=== PATIENT | female | born 1970 | race Two or more races ===

== ENCOUNTER 2022-04-07 03:55 | Inpatient (IN) | payer BC, MEDICAID ==
[~2022-04-07] VITALS: Ht 170.2 cm; Wt 90.7 kg
[2022-04-07] MEDS ORDERED: DexAMETHasone SOD PHOS 4 MG/1ML SDV INJ IV ONE (04:45)
[2022-04-07] MEDS ORDERED: HYDROmorphone HCL 2 MG/ML VL/or syr IV ONE (04:45)
[2022-04-07] MEDS ORDERED: ONDANSETRON HCL 4 MG/2 ML VIAL IV ONE ×2 (05:00→10:45)
[2022-04-07 07:43] LABS: Basophils # (auto) 0 10 ^3/uL (0-0.2); Basophils % (auto) 0.3 % (0.0-2.0); Eosinophils # (auto) 0 10 ^3/uL (0-0.8); Eosinophils % (auto) 0.1 % (0.0-7.0); Hematocrit 41.7 % (36.0-46.0); Hemoglobin 14.1 g/dL (12.2-16.2); Lymphocytes # (auto) 0.8 10 ^3/uL (0.4-5.4); Lymphocytes % (auto) 24.7 % (10.0-50.0); Mean Corpuscular Hemoglobin 29.6 pg (28.0-32.0); Mean Corpuscular Hgb Conc. 33.9 g/dL (32.0-36.0); Mean Corpuscular Volume 87.4 fL (80.0-100.0); Monocytes # (auto) 0.3 10 ^3/uL (0-1.3); Monocytes % (auto) 7.6 % (0.0-12.0); Neutrophils # (auto) 2.2 10 ^3/uL (1.6-8.6); Neutrophils % (auto) 67.3 % (37.0-80.0); Nucleated Red Blood Cells % 0.1 %; Red Blood Cells 4.77 10^6/uL (4.0-5.20); Red Cell Distribution Width 13.2 % (11.8-14.3); White Blood Cell 3.3 10^3/uL (4.4-10.8)
[2022-04-07 08:01] LABS: BUN/Creatinine Ratio 16.4; Calcium 8.9 mg/dL (8.5-10.1); Potassium 3.3 mmol/L (3.5-5.1)
[2022-04-07 08:04] LABS: Bilirubin, Total 0.3 mg/dL (0.2-1.0); Total Protein 7.6 g/dL (6.4-8.2)
[2022-04-07] MEDS ORDERED: SODIUM CHLORIDE 0.9% 1,000 ML IV ONE (10:45)
[2022-04-07] MEDS ORDERED: MORPHINE SULFATE 4 MG/ML SYR/VIAL IV ONE (10:45)
[2022-04-07] MEDS ORDERED: KETOROLAC TROMETH 30 MG/ML 1ML VIAL IV ONE (11:30)
[2022-04-07] MEDS ORDERED: POTASSIUM CHL 20 Meq TABLET PO ONE (11:45)
[2022-04-07] MEDS ORDERED: ACETAMINOPHEN 325 MG TAB PO PRN (12:30)
[2022-04-07] MEDS ORDERED: LACTATED RINGER'S 1,000 ML IV ONE (12:30)
[2022-04-07] MEDS ORDERED: DOCUSATE SOD 100 MG CAP PO PRN (12:30)
[2022-04-07] MEDS ORDERED: TAMSULOSIN HYDROCHLORIDE 0.4 MG CAP PO SCH (12:30)
[2022-04-07] MEDS ORDERED: HYDROcodone-ACET 5/325MG TAB PO PRN (12:30)
[2022-04-07] MEDS ORDERED: HYDROmorphone HCL 2 MG/ML VL/or syr IV PRN ×2 (12:45→13:45)
[2022-04-07] MEDS: HEPARIN SODIUM (PORCINE) 5000 UNITS/ML 1ML VIAL SC SCH ×2 (13:59→20:08)
[2022-04-07] MEDS ORDERED: SODIUM CHLOR 0.9% PF (SALINE LOCK) 10ML VIAL/SYR IV SCH (14:00)
[2022-04-07] MEDS: ONDANSETRON HCL 4 MG/2 ML VIAL IV PRN ×2 (15:41→20:07)
[2022-04-07] MEDS: MORPHINE SULFATE INJ 2 MG/ml SYRG IV PRN ×3 (15:41→21:55)
[2022-04-07] MEDS ORDERED: CARI-277 PO (21:11)
[2022-04-07] MEDS ORDERED: ATEN-60 PO (21:11)
[2022-04-07] MEDS ORDERED: PERCOT PO (21:12)
[2022-04-07 21:15] VITALS: BP 184/93
[2022-04-07] MEDS ORDERED: CARISOPRODOL 350 MG TAB PO PRN (21:30)
[2022-04-07] MEDS ORDERED: ATENOLOL 25 MG TAB PO SCH (21:45)
[2022-04-07] MEDS ORDERED: OXYCODONE W/ ACETAMINOPHEN 5/325MG TABLET PO SCH (22:00)
[2022-04-08] MEDS ORDERED: ATENOLOL 25 MG TAB PO SCH (10:00)
== END 2022-04-07 22:16 | disposition left against medical advice (07) | DRG 551 ==
LOC: ER 03:55 → EDBD 03:55 → OVERFLOW 12:29
PROVIDERS: ADMIT Internal Medicine; ATTEND Internal Medicine
DX: M54.16 Radiculopathy, lumbar region (principal); U07.1 COVID-19; N20.0 Calculus of kidney; E87.6 Hypokalemia; I10 Essential (primary) hypertension; G89.29 Other chronic pain; Z53.29 Procedure and treatment not carried out because of patient's decision for other reasons
CPT/HCPCS: 36415; 72131; 74176; 80053; 85025; 87426; 93005; 96361; 96374; 96375; 96376; G0378; J1100; J1885; J2405

== ENCOUNTER 2023-10-08 10:12 | Inpatient (IN) | payer BC, MEDICAID ==
[~2023-10-08] VITALS: Ht 167.6 cm; Wt 115.0 kg
[~2023-10-08 10:12] MED LIST: ADAL40IN SC; HYDR-4798 PO; METH2.5T PO; PREG150C PO
[2023-10-08 10:30] VITALS: PULSE 81; RESP 14; O2SAT 96
[2023-10-08 11:06] LABS: Basophils # (auto) 0 10 ^3/uL (0-0.2); Basophils % (auto) 0.2 % (0.0-2.0); Eosinophils # (auto) 0 10 ^3/uL (0-0.8); Eosinophils % (auto) 0.4 % (0.0-7.0); Hematocrit 33.7 % (36.0-46.0); Hemoglobin 10.8 g/dL (12.2-16.2); Lymphocytes # (auto) 0.7 10 ^3/uL (0.4-5.4); Mean Corpuscular Hemoglobin 28.5 pg (28.0-32.0); Mean Corpuscular Hgb Conc. 32.1 g/dL (32.0-36.0); Mean Corpuscular Volume 88.6 fL (80.0-100.0); Monocytes # (auto) 0.3 10 ^3/uL (0-1.3); Monocytes % (auto) 2.5 % (0.0-12.0); Neutrophils # (auto) 10.1 10 ^3/uL (1.6-8.6); Neutrophils % (auto) 90.9 % (37.0-80.0); Red Cell Distribution Width 16.3 % (11.8-14.3); White Blood Cell 11.1 10^3/uL (4.4-10.8)
[2023-10-08] MEDS: KETOROLAC TROMETH 30 MG/ML 1ML VIAL IV ONE (11:12)
[2023-10-08] MEDS: SODIUM CHLORIDE 0.9% 1,000 ML IV ONE (11:12)
[2023-10-08] MEDS: ONDANSETRON HCL 4 MG/2 ML VIAL IV ONE (11:13)
[2023-10-08 11:24] LABS: Urine Bacteria None Seen /hpf (None Seen)
[2023-10-08] MEDS: VANCOMYCIN 1GM/200ML 200 ML IV ONE (11:25)
[2023-10-08 11:30] LABS: Alanine Aminotransferase 17 U/L (7-40); Albumin 4.2 g/dL (3.2-4.8); Alkaline Phosphatase 97 U/L (46-116); Anion Gap 12 (5-15); Aspartate Aminotransferase 18 U/L (13-40); BUN/Creatinine Ratio 9.2 (10.0-20.0); Blood Urea Nitrogen 6 mg/dL (9-23); Calcium 9.8 mg/dL (8.5-10.1); Carbon Dioxide 21 mmol/L (20-30); Chloride 109 mmol/L (98-107); Glucose 139 mg/dL (74-106); Potassium 2.8 mmol/L (3.5-5.1); Sodium 142 mmol/L (136-145)
[2023-10-08 11:31] LABS: Bilirubin, Total 0.3 mg/dL (0.2-1.0); Total Protein 7.5 g/dL (5.7-8.2)
[2023-10-08 11:48] LABS: INR 1.1 (0.9-1.15); Partial Thromboplastin Time 28.7 SEC (24.5-34.5); Prothrombin Time 11.6 sec (9.3-11.8)
[2023-10-08] MEDS ORDERED: POTASSIUM CHL 20 Meq TABLET PO ONE (12:00)
[2023-10-08] MEDS: MORPHINE SULFATE 4 MG/ML SYR/VIAL IV ONE (12:03)
[2023-10-08] MEDS: POTASSIUM EFFERVESENT TAB 25 MEQ PO ONE (12:03)
[2023-10-08 12:11] LABS: Urine Blood Negative /uL (Negative); Urine Clarity Clear (Clear); Urine Color Light-Yellow (Yellow); Urine Mucus FEW (None Seen); Urine Protein, UAD 1+ (Negative); Urine Urobilinogen Normal (Negative); Urine WBC 1 /hpf (0 - 5); Urine pH 6.5 (5.0-9.0)
[2023-10-08] MEDS: MAGNESIUM SULFATE 1GM/100ML 100 ML IV ONE (12:27)
[2023-10-08] MEDS: PIPERACILLIN-TAZO 4.5GM 100 ML IV ONE (13:08)
[2023-10-08] MEDS: HYDROmorphone HCL 2 MG/ML VL/or syr IV ONE ×3 (13:42→21:18)
[2023-10-08] MEDS: METOCLOPRAMIDE HCL 5MG/ml INJ 2ml VIAL IV ONE (13:43)
[2023-10-08] MEDS ORDERED: VANCOMYCIN PER PHARMACY 0 MG IV SCH (16:45)
[2023-10-08] MEDS ORDERED: ONDANSETRON HCL 4 MG/2 ML VIAL IV PRN (16:45)
[2023-10-08] MEDS ORDERED: ACETAMINOPHEN 325 MG TAB PO PRN (16:45)
[2023-10-08] MEDS ORDERED: clonazePAM 0.5 MG TAB PO SCH ×2 (16:45→22:00)
[2023-10-08] MEDS ORDERED: HYDROcodone-ACET 5/325MG TAB PO PRN (16:45)
[2023-10-08] MEDS ORDERED: MORPHINE SULFATE INJ 2 MG/ml SYRG IV PRN (16:45)
[2023-10-08] MEDS: clonazePAM 0.5 MG TAB PO ONE (17:02)
[2023-10-08] MEDS: VANCOMYCIN 1GM/200ML 200 ML IV SCH (17:14)
[2023-10-08] MEDS: SODIUM CHLORIDE 0.9% 1,000 ML IV SCH (17:15)
[2023-10-08] MEDS: PIPERACILLIN-TAZOB 3.375GM 100 ML IV SCH (18:25)
[2023-10-08 20:00] VITALS: PULSE 77; RESP 14; TEMP 98.3; O2SAT 98
[2023-10-08] MEDS ORDERED: OXYCODONE W/ ACETAMINOPHEN 5/325MG TABLET PO PRN (20:55)
[2023-10-08 21:53] VITALS: BP 124/66; PULSE 87; RESP 22; O2SAT 98
== END 2023-10-09 03:19 | disposition left against medical advice (07) | DRG 383 ==
LOC: ER 10:12 → EDBD 10:12 → OVERFLOW 16:35 → WEST WING 22:25
PROVIDERS: ADMIT Internal Medicine; ATTEND Internal Medicine
DX: L02.212 Cutaneous abscess of back [any part, except buttock and flank] (principal); F41.9 Anxiety disorder, unspecified; G89.29 Other chronic pain; I10 Essential (primary) hypertension; Z53.29 Procedure and treatment not carried out because of patient's decision for other reasons; N20.0 Calculus of kidney; M45.9 Ankylosing spondylitis of unspecified sites in spine; G47.30 Sleep apnea, unspecified; Z79.899 Other long term (current) drug therapy; Y84.8 Other medical procedures as the cause of abnormal reaction of the patient, or of later complication, without mention of misadventure at the time of the procedure; Y92.89 Other specified places as the place of occurrence of the external cause
CPT/HCPCS: 36415; 71045; 74176; 80053; 81001; 83605; 85025; 85610; 85730; 87040; G0378; J1885; J2405; J2543

== ENCOUNTER 2024-02-07 12:22 | Inpatient (IN) | payer MEDICAID ==
[~2024-02-07] VITALS: Ht 167.6 cm; Wt 90.2 kg
[2024-02-07] VITALS (33 sets, daily range): BP systolic 94–145; BP diastolic 43–77; PULSE 61–82; RESP 18–24; TEMP 97.9–99.1; O2SAT 96–100
[2024-02-07] MEDS: MIDAZOLAM DRIP 50 mg/50mL 50 ML IV ONE (12:44)
--- NOTE | 2024-02-07 12:44 | ED.PDOC ---
Altered Mental Status HPI Comments 53y F who presents to the ED for chief complaint of ALOC. Per EMS, pt was found by family in bedroom unresponsive laid out in bed. Pt family started chest compressions and family member had EPI pen and administered to try and help but pt still unresponsive and family called EMS. EMS arrived with family stating they had been doing CPR for approx 5 minutes. EMS arrived on scene and noted pt had agonal respirations with 02 sat of 36- 37% but had noted strong pulses and and tried given 2 mg Narcan with no change. EMS starting bagging the pt and 02 sat janak to 96-97% and pt was brought to the ED. Pt in the ED, not alert or oriented with EMS bagging upon arrival to ED bed. Pt family states pt went to gym earlier this AM and after coming back home, pt showered and was found unresponsive by family. Pt family states pt was last well seen at approx 0800 and family states pt was found unresponsive at approx 1145 AM. EMS states pt is DEAF and has otherwise noted history of HTN and chronic back pain, and insomnia and it unknown if pt took any medications earlier this AM. Pt unable to answer any questions at this time. Chief Complaint: ALOC Time Seen by MD: 12:39 Primary Care Provider: FRANSISCO Almazan Notes: Nurses Notes, Medications, Allergies Allergies: Coded Allergies: NO KNOWN ALLERGIES (Unverified , 04/07/22) Home Meds Reported Medications Methotrexate (Methotrexate) Unknown Strength Tab, PO, TAB 06/11/23 Pregabalin (Lyrica) 150 Mg Cap, 300 MG PO TID, CAP 06/11/23 Adalimumab (Humira) 40 Mg/0.4 Ml Inj, 40 MG SC [id number], INJ 06/11/23 Hydrocodone-Acetaminophen (Hydrocodone Bitartrate/AC 10-325 mg) 1 Tab Tab, 1 TAB PO TID, TAB 06/11/23 Information Source: Emergency Med Personnel Mode of Arrival: EMS Brought in by: EMS Severity: Unresponsive Timing: Minutes, Hours Duration: Minutes Prehospital treatment: Other (narcan 2 mg) Quality: None Recent: None History of: None Associated Signs and Symptoms: None Past Medical History PAST MEDICAL HISTORY: Arthritis, HTN, Kidney Stones, UTI'S Past Medical History (Other): chronic back pain, insomnia Surgical History: Unknown 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: 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 Family History Family History: Unknown Social History Smoker: Unknown Alcohol: Unknown Drugs: Unknown Lives In: Home Constitutional: denies: chills, diaphoresis, fatigue, fever, malaise, sweats, weakness, others EENTM: denies: blurred vision, double vision, ear bleeding, ear discharge, ear drainage, ear pain, ear ringing, eye pain, eye redness, hearing loss, mouth pain, mouth swelling, nasal discharge, nose bleeding, nose congestion, nose pain, photophobia, tearing, throat pain, throat swelling, voice changes, others Respiratory: denies: cough, hemoptysis, orthopnea, SOB at rest, shortness of breath, SOB with excertion, stridor, wheezing, others Cardiovascular: denies: chest pain, dizzy spells, diaphoresis, Dyspnea on exertion, edema, irregular heart beat, left arm pain, lightheadedness, palpitations, PND, syncope, others Gastrointestinal: denies: abdomen distended, abdominal pain, blood streaked bowels, constipated, diarrhea, dysphagia, difficulty swallowing, hematemesis, melena, nausea, poor appetite, poor fluid intake, rectal bleeding, rectal pain, vomiting, others Genitourinary: denies: abnormal vagina bleeding, burning, dyspareunia, dysuria, flank pain, frequency, hematuria, incontinence, pain, , vagina dis charge, urgency, others Neurological: denies: dizziness, fainting, headache, left sided numbness, left sided weakness, numbness, paresthesia, pre-existing deficit, right sided numbness, right sided weakness, seizure, speech problems, tingling, tremors, weakness, others Musculoskeletal: denies: back pain, gout, joint pain, joint swelling, muscle pain, muscle stiffness, neck pain, others Integumetry: denies: bruises, change in color, change in hair/nails, dryness, laceration, lesions, lumps, rash, wounds, others Allergic/Immunocompromised: denies: Difficulty Healing, Frequent Infections, Hives, Itching, others Hematologic/Lymphatic: denies: anemia, blood clots, easy bleeding, easy bruising, swollen glands, others Endocrine: denies: excessive hunger, excessive sweating, excessive thirst, excessive urination, flushing, intolerance to cold, intolerance to heat, unexplained weight gain, unexplained weight loss, others Psychiatric: denies: anxiety, bipolar disorder, depression, hopeless, panic disorder, schizophrenia, sleepless, suicidal, others Unable to Obtain due to: Altered Mental Status All Other Systems: Reviewed and Negative Physical Exam General Appearance: Moderate Distress HEENT: Normal ENT Inspection, Pharynx Normal, TMs Normal Neck: Full Range of Motion, Non-Tender, Normal, Normal Inspection Respiratory: Chest Non-Tender, Lungs Clear, No Accessory Muscle Use, No Respiratory Distress, Normal Breath Sounds Cardiovascular: No Edema, No JVD, No Murmur, No Gallop, Normal Peripheral Pulses, Regular Rate/Rhythm Breast Exam: Deferred Gastrointestinal: No Organomegaly, Non Tender, No Pulsatile Mass, Normal Bowel Sounds, Soft Genitalia: Deferred Pelvic: Deferred Rectal: Deferred Extremities: No calf tenderness, Normal capillary refill, Normal inspection, Normal range of motion, Non-tender, No pedal edema Musculoskeletal : Apperance: Normal Neurologic: Alert, leadership recruiter II-XII nml as Tested, No Motor Deficits, Normal Affect, Normal Mood, No Sensory Deficits Cerebellar Function: Normal Reflexes: Normal Skin: Dry, Normal Color, Warm Lymphatic: No Adenopathy Was a procedure done? 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 Indication: Inability to obtain IV Room prepared for procedure: Yes Coroner'S Juror performed hand hygien: Yes Maximal sterile barrier precau: Mask/Eye shield, Sterile gown, Sterlie gloves, Large sterlie drape Skin preparation completely dr: Yes Insertion site: Right, Femoral Central line catheter type: [id number] dialysis Post Assessment: Chest X-Ray Intubation Indication: Altered Mental Status Prep: No Preoxygenation Pretreated with: Other (etomidate 20 mg) Medicated with: Succinylcholine (100 mg) Intubation Approach: Orotracheal Intubation size: cm (8.0 , 24 cm) Informed consent obtained: No Risks/benefits/alt described: No Differential Diagnosis (ALOC) Differential Diagnosis: Hypoglycemia, Encephalopathy, Sepsis, Closed Head Injury, CVA, Drug Overdose, ETOH Intoxication, Heart Failure, Renal Failure X-Ray, Labs, Meds, VS Vital Signs Date Time Temp Pulse Resp B/P (MAP) Pulse Ox O2 Delivery O2 Flow Rate FiO2 02/07/24 15:00 95/53 02/07/24 15:00 95/53 02/07/24 14:19 82 18 94/43 (60) 100 60 02/07/24 13:54 98.0 70 24 100/57 98 60 98.0 02/07/24 13:44 100/57 02/07/24 13:27 70 18 98 Mechanical Ventilator+ 100 100 02/07/24 12:45 100/59 02/07/24 12:30 84 100 60 02/07/24 12:23 101 33 112/44 (66) 95 Lab Test 02/07/24 13:40 02/07/24 12:48 02/07/24 12:00 Range/Units Blood Gas Specimen Type Arterial Blood Gas Sample Site Right radial Blood Gas Patient Temperature 37.0 Arterial Blood Date Drawn [id number] Arterial Blood pH 7.123 *L 7.350-7.450 Arterial Blood Partial Pressure CO2 40.2 32.0-45.0 mmHg Arterial Blood Partial Pressure O2 76.6 L 83.0-108.0 mmHg Arterial Blood HCO3 12.9 L 21.0-28.0 mmol/L Arterial Blood Oxygen Saturation 92.8 L 94.0-98.0 % Arterial Blood Base Excess -15.6 L -2.0-3.0 mmol/L Arterial Blood Oxyhemoglobin 91.7 L 94.0-98.0 % Arterial Blood Carboxyhemoglobin 0.7 0.5-1.5 % Arterial Blood Methemoglobin 0.5 0.0-1.5 % Josué Test Modified Blood Gas Total Hemoglobin 11.10 L 12.0-16.0 g/dL Blood Gas Set Respiration Rate 18.0 Blood Gas Modality Vent - ac FiO2 % 60.0 Blood Gas Tidal Volume 450.0 Blood Gas PEEP or CPAP 5.0 Blood Gas Critical Value Read Back Yes Blood Gas Notified Whom Regina garza md Blood Gas Notified Time [id number] Blood Gas Notified By Drill Runner Helper [email or web address] White Blood Count 11.2 H 4.4-10.8 10^3/uL Red Blood Count 4.11 4.0-5.20 10^6/uL Hemoglobin 10.5 L 12.2-16.2 g/dL Hematocrit 36.5 36.0-46.0 % Mean Corpuscular Volume 88.8 80.0-100.0 fL Mean Corpuscular Hemoglobin 25.5 L 28.0-32.0 pg Mean Corpuscular Hemoglobin Concent 28.7 L 32.0-36.0 g/dL Red Cell Distribution Width 19.5 H 11.8-14.3 % Platelet Count 288 140-450 10^3/uL Mean Platelet Volume 8.7 6.9-10.8 fL Neutrophils (%) (Auto) 76.7 37.0-80.0 % Lymphocytes (%) (Auto) 17.7 10.0-50.0 % Monocytes (%) (Auto) 4.9 0.0-12.0 % Eosinophils (%) (Auto) 0.3 0.0-7.0 % Basophils (%) (Auto) 0.4 0.0-2.0 % Neutrophils # (Auto) 8.6 1.6-8.6 10 ^3/uL Lymphocytes # (Auto) 2.0 0.4-5.4 10 ^3/uL Monocytes # (Auto) 0.5 0-1.3 10 ^3/uL Eosinophils # (Auto) 0 0-0.8 10 ^3/uL Basophils # (Auto) 0 0-0.2 10 ^3/uL Nucleated Red Blood Cells 0.2 % Sodium Level 143 136-145 mmol/L Potassium Level 4.2 3.5-5.1 mmol/L Chloride Level 112 H 98-107 mmol/L Carbon Dioxide Level 17 L 20-31 mmol/L Anion Gap 14 5-15 Blood Urea Nitrogen 23 9-23 mg/dL Creatinine 1.43 H 0.550-1.02 mg/dL Glomerular Filtration Rate Calc 43 >90 mL/min BUN/Creatinine Ratio 16.1 10.0-20.0 Serum Glucose 120 H 74-106 mg/dL Calcium Level 9.0 8.7-10.4 mg/dL Troponin I High Sensitivity 114 *H </=34 ng/L Plasma/Serum Blood Alcohol < 3.0 <10 mg/dL Urine Color Light-orange Yellow Urine Clarity Ex.turbid Clear Urine pH 5.5 5.0-9.0 Urine Specific [place] 1.027 1.001-1.035 Urine Protein 3+ H Negative Urine Ketones Negative Negative Urine Blood 3+ H Negative /uL Urine Nitrite Negative Negative Urine Bilirubin Negative Negative Urine Urobilinogen Normal Negative mg/dL Urine Leukocyte Esterase Negative Negative /uL Urine RBC 7 0 - 4 /hpf Urine WBC 31 0 - 5 /hpf Urine Squamous Epithelial Cells None seen <5 /hpf Urine Bacteria Few H None Seen /hpf Urine Hyaline Casts Few 0 - 2 /lpf Urine Mucus Few None Seen Urine Glucose Normal Normal mg/dL Urine Opiates Screen Pos NEGATIVE Urine Fentanyl Screen Neg NEGATIVE Urine Barbiturates Screen Neg NEGATIVE Urine Phencyclidine Screen Neg NEGATIVE Urine Amphetamines Screen Neg NEGATIVE Urine Benzodiazepines Screen Pos NEGATIVE Urine Cocaine Screen Neg NEGATIVE Urine Cannabinoids Screen Pos NEGATIVE Current Medications Medications (Trade) Dose Ordered Sig/Shoaib Route Start Time Stop Time Status Last Admin Etomidate 20 mg ONCE ONCE IV 02/07/24 12:45 02/07/24 12:46 DC 02/07/24 12:45 Succinylcholine Chloride (Quelicin) 100 mg ONCE ONCE IV 02/07/24 12:45 02/07/24 12:46 DC 02/07/24 12:45 Midazolam HCl 50 ml @ 1 mls/hr Q24H IV 02/07/24 12:45 02/07/24 12:45 Sodium Bicarbonate 50 ml ONCE ONCE IV 02/07/24 14:00 02/07/24 14:01 DC 02/07/24 14:09 Sodium Bicarbonate 50 ml/ Sodium Chloride 1,050 ml @ 50 mls/hr ONCE ONCE IV 02/07/24 14:00 02/08/24 10:59 02/07/24 14:00 Norepinephrine Bitartrate 250 ml @ 3.75 mls/hr Q24H IV 02/07/24 15:00 02/07/24 15:00 The chest x-ray shows: IMPRESSION: 1. Endotracheal tube 5.2 cm above the . 2. Enteric tube below the left diaphragm in the stomach. A Alaniz catheter was placed. Currently the patient is being sedated with a Versed. The initial ABG came back with a pH of 7.12 The patient's sodium bicarbonate is decreased at 12.9 At this time, the patient is being given one amp of sodium bicarbonate The patient was started on a half-normal saline drip with an amp of sodium bicarbonate The patient's urine tox is positive for benzodiazepines, marijuana and opiates The urine test is positive for WBCs consistent with a UTI The patient is being given Rocephin 1 g IV piggyback The 1st troponin level came back elevated at 114 The CBC does show some anemia as well The patient is being admitted to the hospitalist The patient's was at bedside briefly and we did explain the patient's condition The patient became somewhat hypotensive and was stating that she wants the endotracheal tube pulled out. We did go ahead and turned down the sedation but the patient is not able to tolerate her secretions and we feel that the patient is not ready to be extubated. We did start the patient on norepinephrine to address the patient's blood pressure The patient is now also being started on propofol to address the sedation At this time, the patient is being The CT scan of the head will be followed by the hospitalist Images Reviewed?: Images reviewed and evaluated by me Time of 1ST Reevaluation: 13:10 Reevaluation 1ST: Unchanged Patient Education/Counseling: Pt Unresponsive Family Education/Counseling: Diagnosis, Treatment, Prognosis Departure 1 Departure Time of Disposition: 14:20 Impression: Primary Impression: Respiratory acidosis Additional Impressions: Acute respiratory failure Qualified Codes: J96.01 - Acute respiratory failure with hypoxia Toxic encephalopathy Qualified Codes: G92.9 - Unspecified toxic encephalopathy Disposition: ADMITTED INPATIENT Admit to: ICU Condition: Fair Critical Care Note Critical Care Time?: Yes Stability Stability form required: Yes Unstable for transfer: ICU, CCU, PCU, OCTAVIO (Intensive VS monitoring), May require CPR (possible rapid decline), ED Physician Assesment (Clinical assesment) Heart Score Heart Score: Heart Score Response (Comments) Value History N/A 0 EKG N/A 0 Age N/A 0 Risk Factors N/A 0 Troponin N/A 0 Total 0 I personally scribed for ZANE GARZA MD (NOY) on 02/07/24 at 12:44. Electronically submitted by Peace Beard (YI). I personally scribed for ZANE GARZA MD ([email or web address]) on 02/07/24 at 13:02. Electronically submitted by Peace Beard (YI). I personally scribed for ZANE GARZA MD (NOY) on 02/07/24 at 13:07. Electronically submitted by Peace Beard (YI). I personally scribed for ZANE GARZA MD ([email or web address]) on 02/07/24 at 14:03. Electronically submitted by Peace Beard (YI). ZANE GARZA MD Feb 07, 2024 12:44
[2024-02-07] MEDS: SUCCINYLCHOLINE CHLORIDE 20 MG/ML 10ML VIAL IV ONE (12:45)
[2024-02-07] MEDS: ETOMIDATE (2MG/ML) 20ML VIAL IV ONE (12:45)
[2024-02-07] MEDS: MIDAZOLAM DRIP 50 mg/50mL 50 ML IV SCH (12:45)
[2024-02-07 12:56] LABS: Urine Bacteria FEW /hpf (None Seen); Urine Blood 3+ /uL (Negative); Urine Clarity Ex.Turbid (Clear); Urine Color Light-Orange (Yellow); Urine Hyaline Cast FEW /lpf (0 - 2); Urine Mucus FEW (None Seen); Urine Protein, UAD 3+ (Negative); Urine Specific Gravity 1.027 (1.001-1.035); Urine Urobilinogen Normal (Negative); Urine WBC 31 /hpf (0 - 5); Urine pH 5.5 (5.0-9.0)
[2024-02-07 13:04] LABS: Anion Gap 14 (5-15); Carbon Dioxide 17 mmol/L (20-31); Chloride 112 mmol/L (98-107); Potassium 4.2 mmol/L (3.5-5.1); Sodium 143 mmol/L (136-145)
[2024-02-07 13:05] LABS: Eosinophils # (auto) 0 10 ^3/uL (0-0.8); Hemoglobin 10.5 g/dL (12.2-16.2); Monocytes # (auto) 0.5 10 ^3/uL (0-1.3); Nucleated Red Blood Cells % 0.2 %
[2024-02-07 13:07] LABS: Basophils # (auto) 0 10 ^3/uL (0-0.2); Basophils % (auto) 0.4 % (0.0-2.0); Eosinophils % (auto) 0.3 % (0.0-7.0); Hematocrit 36.5 % (36.0-46.0); Lymphocytes % (auto) 17.7 % (10.0-50.0); Mean Corpuscular Hemoglobin 25.5 pg (28.0-32.0); Mean Corpuscular Hgb Conc. 28.7 g/dL (32.0-36.0); Mean Corpuscular Volume 88.8 fL (80.0-100.0); Monocytes % (auto) 4.9 % (0.0-12.0); Neutrophils # (auto) 8.6 10 ^3/uL (1.6-8.6); Neutrophils % (auto) 76.7 % (37.0-80.0); Platelet Count (auto) 288 10^3/uL (140-450); Red Blood Cells 4.11 10^6/uL (4.0-5.20); Red Cell Distribution Width 19.5 % (11.8-14.3); White Blood Cell 11.2 10^3/uL (4.4-10.8)
[2024-02-07 13:10] LABS: BUN/Creatinine Ratio 16.1 (10.0-20.0); Blood Alcohol < 3.0 mg/dL (<10); Blood Urea Nitrogen 23 mg/dL (9-23); Glucose 120 mg/dL (74-106)
[2024-02-07 13:18] LABS: Amphetamine Screen, Urine Neg (NEGATIVE); Barbiturate Scree,Urine Neg (NEGATIVE); Benzodiazephine Screen, Urine Pos (NEGATIVE); Cannabinoid Screen, Urine Pos (NEGATIVE); Cocaine Screen, Urine Neg (NEGATIVE); Opiate Scree,Urine Pos (NEGATIVE); Phencyclidine Screen, Urine Neg (NEGATIVE)
[2024-02-07 13:46] LABS: Base Excess -15.6 mmol/L (-2.0-3.0)
[2024-02-07] MEDS: SODIUM BICARB 50mEq/50ml Vial 50 ML in SOD CHL 0.45% 1,000 ML IV ONE (14:00)
[2024-02-07] MEDS: SODIUM BICARB 8.4% 50Meq/50ml SYR Vial IV ONE (14:09)
--- NOTE | 2024-02-07 14:15 | DVH ---
CHEST RADIOGRAPH Indication:weakness Technique: Single frontal view of the chest was obtained Comparison: XY CHEST PORTABLE on DOS: 10/08/23 FINDINGS: Lines and Tubes: 0.2 the craina. Enteric tube below the left diaphragm in the stomach. Lungs: No focal consolidation. Pleura: No effusion. No pneumothorax. Cardiomediastinal contours: Unremarkable Bones: No acute osseous abnormality. IMPRESSION: 1. Endotracheal tube 5.2 cm above the . 2. Enteric tube below the left diaphragm in the stomach.
[2024-02-07] MEDS: cefTRIAXone 1GM/50ML D5W 50 ML IV ONE (14:30)
[2024-02-07] MEDS ORDERED: SODIUM CHLORIDE 0.9% 1,000 ML IV ONE (14:30)
[2024-02-07] MEDS: NALOXONE HCL 1MG/ML 2ML SYRINGE ONE (14:40)
[2024-02-07] MEDS: NOREPINEPHRINE 8 MG/250ML KIT 250 ML IV ONE (15:00)
[2024-02-07] MEDS: NOREPINEPHRINE 8 MG/250ML KIT 250 ML IV SCH (15:00)
[2024-02-07] MEDS ORDERED: PROPOFOL 10 MG/ML 20 ML IV ONE (16:15)
[2024-02-07] MEDS ORDERED: ONDANSETRON HCL 4 MG/2 ML VIAL IV PRN (16:15)
[2024-02-07] MEDS: SODIUM CHLORIDE 0.9% 1,000 ML IV SCH (16:15)
[2024-02-07] MEDS: PROPOFOL 100 ML IV SCH (16:20)
[2024-02-07] MEDS: PANTOPRAZOLE 40 MG/10 ML VIAL INJ IV ONE (16:45)
--- NOTE | 2024-02-07 16:51 | DVHHP2 ---
History of Present Illness Reason for Visit: CPR in progress History of Present Illness The patient is currently intubated. Medical history obtained for nursing staff and medical record. 53y F who presents to the ED for chief complaint of ALOC. Per EMS, pt was found by family in bedroom unresponsive laid out in bed. Pt family started chest compressions and family member had EPI pen and administered to try and help but pt still unresponsive and family called EMS. EMS arrived with family stating they had been doing CPR for approx 5 minutes. EMS arrived on scene and noted pt had agonal respirations with 02 sat of 36- 37% but had noted strong pulses and and tried given 2 mg Narcan with no change. EMS starting bagging the pt and 02 sat janak to 96-97% and pt was brought to the ED. Pt in the ED, not alert or oriented with EMS bagging upon arrival to ED bed. Pt family states pt went to gym earlier this AM and after coming back home, pt showered and was found u nresponsive by family. Pt family states pt was last well seen at approx 0800 and family states pt was found unresponsive at approx 1145 AM. EMS states pt is DEAF and has otherwise noted history of HTN and chronic back pain, and insomnia and it unknown if pt took any medications earlier this AM. Pt unable to answer any questions at this time. Past Medical History As stated in HPI Past Surgical History Unknown Family History Reviewed, non-contributory to the management of this case. Past Social History Unknown Review of Systems Review of Systems ROS See HPI Allergies: Coded Allergies: NO KNOWN ALLERGIES (Unverified , 04/07/22) Medications Current Medications Medications Dose Ordered Sig/Shoaib Route Start Time Stop Time Status Last Admin Dose Admin Midazolam HCl 50 ml @ 1 mls/hr Q24H IV 02/07/24 12:45 02/07/24 12:45 1 MLS/HR Norepinephrine Bitartrate 250 ml @ 3.75 mls/hr Q24H IV 02/07/24 15:00 02/07/24 15:00 3.75 MLS/HR Propofol 100 ml @ 3.06 mls/hr Q24H IV 02/07/24 16:15 02/07/24 16:20 3.06 MLS/HR Sodium Chloride 1,000 ml @ 100 mls/hr Q10H IV 02/07/24 16:15 UNV Ondansetron HCl 4 mg Q4HP PRN IV 02/07/24 16:15 UNV Exam Vital Signs Vital Signs Date Time Temp Pulse Resp B/P (MAP) Pulse Ox O2 Delivery O2 Flow Rate FiO2 02/07/24 16:20 106/62 02/07/24 16:15 98 40 02/07/24 16:05 66 18 02/07/24 13:54 98.0 98.0 02/07/24 13:27 Mechanical Ventilator+ General Appearance: Other (Currently intubated) Respiratory: Clear to auscultation, Normal air movement, Other (Intubated) Cardiovascular: Regular rate, Normal S1, Normal S2 Abdominal: Normal bowel sounds, Soft, No tenderness Extremities: No clubbing, No cyanosis, No edema, Normal pulses Skin: No rashes, No breakdown Neuro: Normal gait Labs/Xrays Labs Test 02/07/24 13:40 02/07/24 12:48 02/07/24 12:00 Range/Units Blood Gas Specimen Type Arterial Blood Gas Sample Site Right radial Blood Gas Patient Temperature 37.0 Arterial Blood Date Drawn [id number] Arterial Blood pH 7.123 *L 7.350-7.450 Arterial Blood Partial Pressure CO2 40.2 32.0-45.0 mmHg Arterial Blood Partial Pressure O2 76.6 L 83.0-108.0 mmHg Arterial Blood HCO3 12.9 L 21.0-28.0 mmol/L Arterial Blood Oxygen Saturation 92.8 L 94.0-98.0 % Arterial Blood Base Excess -15.6 L -2.0-3.0 mmol/L Arterial Blood Oxyhemoglobin 91.7 L 94.0-98.0 % Arterial Blood Carboxyhemoglobin 0.7 0.5-1.5 % Arterial Blood Methemoglobin 0.5 0.0-1.5 % Josué Test Modified Blood Gas Total Hemoglobin 11.10 L 12.0-16.0 g/dL Blood Gas Set Respiration Rate 18.0 Blood Gas Modality Vent - ac FiO2 % 60.0 Blood Gas Tidal Volume 450.0 Blood Gas PEEP or CPAP 5.0 Blood Gas Critical Value Read Back Yes Blood Gas Notified Whom Regina cartwright md Blood Gas Notified Time [id number] Blood Gas Notified By Subway Operator [email or web address] White Blood Count 11.2 H 4.4-10.8 10^3/uL Red Blood Count 4.11 4.0-5.20 10^6/uL Hemoglobin 10.5 L 12.2-16.2 g/dL Hematocrit 36.5 36.0-46.0 % Mean Corpuscular Volume 88.8 80.0-100.0 fL Mean Corpuscular Hemoglobin 25.5 L 28.0-32.0 pg Mean Corpuscular Hemoglobin Concent 28.7 L 32.0-36.0 g/dL Red Cell Distribution Width 19.5 H 11.8-14.3 % Platelet Count 288 140-450 10^3/uL Mean Platelet Volume 8.7 6.9-10.8 fL Neutrophils (%) (Auto) 76.7 37.0-80.0 % Lymphocytes (%) (Auto) 17.7 10.0-50.0 % Monocytes (%) (Auto) 4.9 0.0-12.0 % Eosinophils (%) (Auto) 0.3 0.0-7.0 % Basophils (%) (Auto) 0.4 0.0-2.0 % Neutrophils # (Auto) 8.6 1.6-8.6 10 ^3/uL Lymphocytes # (Auto) 2.0 0.4-5.4 10 ^3/uL Monocytes # (Auto) 0.5 0-1.3 10 ^3/uL Eosinophils # (Auto) 0 0-0.8 10 ^3/uL Basophils # (Auto) 0 0-0.2 10 ^3/uL Nucleated Red Blood Cells 0.2 % Sodium Level 143 136-145 mmol/L Potassium Level 4.2 3.5-5.1 mmol/L Chloride Level 112 H 98-107 mmol/L Carbon Dioxide Level 17 L 20-31 mmol/L Anion Gap 14 5-15 Blood Urea Nitrogen 23 9-23 mg/dL Creatinine 1.43 H 0.550-1.02 mg/dL Glomerular Filtration Rate Calc 43 >90 mL/min BUN/Creatinine Ratio 16.1 10.0-20.0 Serum Glucose 120 H 74-106 mg/dL Calcium Level 9.0 8.7-10.4 mg/dL Troponin I High Sensitivity 114 *H </=34 ng/L Plasma/Serum Blood Alcohol < 3.0 <10 mg/dL Urine Color Light-orange Yellow Urine Clarity Ex.turbid Clear Urine pH 5.5 5.0-9.0 Urine Specific [place] 1.027 1.001-1.035 Urine Protein 3+ H Negative Urine Ketones Negative Negative Urine Blood 3+ H Negative /uL Urine Nitrite Negative Negative Urine Bilirubin Negative Negative Urine Urobilinogen Normal Negative mg/dL Urine Leukocyte Esterase Negative Negative /uL Urine RBC 7 0 - 4 /hpf Urine WBC 31 0 - 5 /hpf Urine Squamous Epithelial Cells None seen <5 /hpf Urine Bacteria Few H None Seen /hpf Urine Hyaline Casts Few 0 - 2 /lpf Urine Mucus Few None Seen Urine Glucose Normal Normal mg/dL Urine Opiates Screen Pos NEGATIVE Urine Fentanyl Screen Neg NEGATIVE Urine Barbiturates Screen Neg NEGATIVE Urine Phencyclidine Screen Neg NEGATIVE Urine Amphetamines Screen Neg NEGATIVE Urine Benzodiazepines Screen Pos NEGATIVE Urine Cocaine Screen Neg NEGATIVE Urine Cannabinoids Screen Pos NEGATIVE PROCEDURE(s): CXRP - CHEST PORTABLE REASON: weakness ORDER NUMBER(s): [id number], ACCESSION NUMBER(s): [id number] CHEST RADIOGRAPH Indication:weakness Technique: Single frontal view of the chest was obtained Comparison: XY CHEST PORTABLE on DOS: 10/08/23 FINDINGS: Lines and Tubes: 0.2 the . Enteric tube below the left diaphragm in the stomach. Lungs: No focal consolidation. Pleura: No effusion. No pneumothorax. Cardiomediastinal contours: Unremarkable Bones: No acute osseous abnormality. IMPRESSION: 1. Endotracheal tube 5.2 cm above the . 2. Enteric tube below the left diaphragm in the stomach. Assessment/Plan Assessment/Plan # Acute hypoxic respiratory failure # s/p CPR # hypotensive with hx of hypertension Admit to ICU Continue with current vent settings, titrate to keep O2 sat > 92% Sodium bicarb Titrate Levophed to keep SBP >90 mmhg Repeat ABG Consider pulmonology consult # acute toxic encephalopathy # possible OD # chronic lower back pain on hydrocodone/acetaminophen CT head pending # elevated troponin, likely noncardiac, possible 2/2 pulmonary acute pathology Trend troponin Monitor 12 lead ECG # questionable GI bleed vs trauma during oral intubation PPIs NG tube Monitor for bleeding # acute kidney injury, ?VMN IV fluid Consider Nephrology consult if does not improve # obesity Lifestyle modification counseled DVT prophylaxis with SCD given questionable GI bleed PUD prophylaxis Medical plan discussed with patient and RN Plan discussed with: Patient My Orders Orders - LEI GUAMAN DIAGNOSTIC IMAGING MANAGER Procedure Category Date Status Time Propofol (Diprivan) PHA 02/07/24 In Process 16:15 Admit ADMIT 02/07/24 Transmitted 16:13 Code Status CODE 02/07/24 Transmitted 16:13 Sodium Chloride 0.9% PHA 02/07/24 Logged 16:15 Ondansetron Hcl PHA 02/07/24 Logged (Zofran) 16:15 Complete Blood Count LAB 02/08/24 Verified 04:00 Comprehensive LAB 02/08/24 Verified Metabolic Panel 04:00 Condition: Critical BOBBY 02/07/24 In Process 16:13 Sequential BOBBY 02/07/24 In Process Compression Device 16:13 Date of Service: Feb 07, 2024 Billing Provider: LEI GUAMANP Common Visit Codes: [id number] INP/OBS CARE (HIGH) LEI GUAMAN DIAGNOSTIC IMAGING MANAGER Feb 07, 2024 16:51
[2024-02-07 16:55] LABS: Triglycerides 100 mg/dL (< 150)
[2024-02-07 16:56] LABS: LDL Cholesterol 76 mg/dL (< 100)
[2024-02-07 16:57] LABS: Cholesterol 150 mg/dL (< 200); HDL Cholesterol 49 mg/dL (40-59)
[2024-02-07] MEDS ORDERED: IPRATROPIUM BROM 0.5 MG/2.5ML INH SOL NEB PRN (17:00)
[2024-02-07] MEDS ORDERED: ALBUTEROL SULF 2.5 MG/0.5ML(0.5%) NEB SOLN NEB PRN (17:00)
[2024-02-07] MEDS: IPRATROPIUM BROM 0.5 MG/2.5ML INH SOL NEB SCH (18:00)
[2024-02-07] MEDS: ALBUTEROL SULF 2.5 MG/0.5ML(0.5%) NEB SOLN NEB SCH (18:00)
--- NOTE | 2024-02-07 18:34 | DVH ---
Procedure: CT HEAD WITHOUT CONTRAST Study Date and Requested Time: 02/07/2024 05:38 PM History: aloc Comparison: None Dose: CTDI: 56.87 mGy DLP: 1007 mGycm Technique: Multiplanar images obtained through the brain without intravenous contrast. Findings: Streak artifact from right sided cochlear implant limits evaluation of the adjacent structures . Oth erwise, Normal brain volume and formation. No hemorrhages, masses, mass effect, midline shift, or cytotoxic edema following a large vascular te rritory. No intra-axial or extra-axial fluid collections. No evidence of hydrocephalus. The basal cis terns are patent. Nonspecific partially empty sella. The cerebellar tonsils are in normal position. The cerebellum is u nremarkable. The orbits and globes are unremarkable. Mild mucoperiosteal thickening of the ethmoid air cells. Oth erwise, the paranasal sinuses are clear. 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 The left mastoid i s clear. There are no worrisome calvarial lesions. Impression: Streak artifact from right-sided cochlear implant limits evaluation of the adjacent structures. Othe rwise, no evidence of acute intracranial abnormalities.
[2024-02-08] VITALS (108 sets, daily range): BP systolic 96–162; BP diastolic 48–87; PULSE 55–82; RESP 14–25; TEMP 96.8–99.9; O2SAT 97–100
[2024-02-08 03:54] LABS: Basophils # (auto) 0 10 ^3/uL (0-0.2); Eosinophils # (auto) 0 10 ^3/uL (0-0.8); Hemoglobin 9.9 g/dL (12.2-16.2); Monocytes # (auto) 0.3 10 ^3/uL (0-1.3); Nucleated Red Blood Cells % 0.1 %
[2024-02-08 03:57] LABS: Basophils % (auto) 0.3 % (0.0-2.0); Eosinophils % (auto) 0.1 % (0.0-7.0); Hematocrit 31.4 % (36.0-46.0); Lymphocytes # (auto) 1.1 10 ^3/uL (0.4-5.4); Lymphocytes % (auto) 14.3 % (10.0-50.0); Mean Corpuscular Hemoglobin 25.6 pg (28.0-32.0); Mean Corpuscular Hgb Conc. 31.4 g/dL (32.0-36.0); Mean Corpuscular Volume 81.5 fL (80.0-100.0); Monocytes % (auto) 4.6 % (0.0-12.0); Neutrophils # (auto) 6.1 10 ^3/uL (1.6-8.6); Neutrophils % (auto) 80.7 % (37.0-80.0); Platelet Count (auto) 180 10^3/uL (140-450); Red Blood Cells 3.85 10^6/uL (4.0-5.20); Red Cell Distribution Width 18.1 % (11.8-14.3); White Blood Cell 7.5 10^3/uL (4.4-10.8)
[2024-02-08 04:15] LABS: Alanine Aminotransferase 395 U/L (7-40); Albumin 3.7 g/dL (3.2-4.8); Alkaline Phosphatase 112 U/L (46-116); Anion Gap 8 (5-15); Aspartate Aminotransferase 506 U/L (13-40); Bilirubin, Total 0.3 mg/dL (0.2-1.0); Blood Urea Nitrogen 20 mg/dL (9-23); Calcium 8.8 mg/dL (8.7-10.4); Carbon Dioxide 23 mmol/L (20-31); Chloride 112 mmol/L (98-107); Glucose 107 mg/dL (74-106); Sodium 143 mmol/L (136-145); Total Protein 7.1 g/dL (5.7-8.2)
--- NOTE | 2024-02-08 04:36 | DVH ---
CHEST RADIOGRAPH Indication:routine-intubated and sedated Technique: Single frontal view of the chest was obtained Comparison: XY CHEST PORTABLE on DOS: 02/07/24 FINDINGS: Lines and Tubes: The endotracheal tube terminates 4.1 cm above the . The enteric tube courses b elow the left hemidiaphragm and the tip extends outside the field of view. Lungs: Pulmonary congestion. Pleura: No effusion. No pneumothorax. Cardiomediastinal contours: Cardiomegaly. Bones: No acute osseous abnormality. ACDF. IMPRESSION: 1. Pulmonary congestion. 2. Cardiomegaly.
[2024-02-08] MEDS: POTASSIUM CHL 20MEQ/100ML 100 ML IV ONE (06:01)
[2024-02-08 06:21] LABS: Base Excess -4.1 mmol/L (-2.0-3.0)
[2024-02-08] MEDS: PANTOPRAZOLE 40 MG/10 ML VIAL INJ IV SCH (09:29)
[2024-02-08] MEDS: PIPERACILLIN-TAZOB 3.375GM 100 ML IV ONE (11:34)
[2024-02-08 11:40] LABS: Magnesium 1.9 mg/dL (1.6-2.6)
[2024-02-08] MEDS: POTASSIUM CHL 20MEQ/100ML 100 ML IV SCH (11:40)
[2024-02-08 11:41] LABS: Phosphorus 2.4 mg/dL (2.4-5.1)
[2024-02-08] MEDS: ENOXAPARIN SOD 40 MG/0.4 ML SYRINGE SC ONE (13:49)
[2024-02-08] MEDS ORDERED: PIPERACILLIN-TAZOB 3.375GM 100 ML IV SCH (14:00)
--- NOTE | 2024-02-08 16:21 | DVHPNRES ---
Progress Note Date Seen: Feb 08, 2024 Resident Creating Document: NICOL GARRETT RESIDENT Medical Necessity Reason Pt with a Central, PICC or Fol: No Subjective Review of Systems HPI: Patient is 53-year-old female with past medical history of hypertension, chronic back pain, insomnia who brought to the hospital via EMS for worsening respiratory distress. EMS was called by son as patient was not responding and EMS was called. At arrival of patient in emergency department patient was intubated for respiratory distress. As per demetrius, patient took sleeping pill clonazepam double dose, however patient did not took more pills for pain [place] 10. Patient also feeling flu-like symptoms one day before and feeling tired but no any other complaints. Patient seen and examined in ICU. Patient is intubated on ventilator. He currently on ventilator setting of respiratory rate 18, 450, FiO2 30%, peep five. Patient has right femoral line, currently on Versed and propofol but not on any pressors. No other night events notified from political advisor. Objective vital signs Vital Sign Date Time Temp Pulse Resp B/P (MAP) Pulse Ox O2 Delivery O2 Flow Rate FiO2 02/08/24 15:38 110/57 02/08/24 14:28 58 18 100 30 02/08/24 12:00 Mechanical Ventilator+ 02/08/24 06:15 98.2 208.8 Total Intake and Output 02/07/24 02/07/24 02/08/24 15:00 23:00 07:00 Intake Total 111 ml 682.32 ml 1123.11 ml Output Total 600 ml Balance 111 ml 682.32 ml 523.11 ml medications Current Medications Medications Dose Ordered Sig/Shoaib Route Start Time Stop Time Status Last Admin Dose Admin Midazolam HCl 50 ml @ 1 mls/hr Q24H IV 02/07/24 12:45 02/08/24 14:56 13 MLS/HR Norepinephrine Bitartrate 250 ml @ 3.75 mls/hr Q24H IV 02/07/24 15:00 02/07/24 15:00 3.75 MLS/HR Propofol 100 ml @ 3.06 mls/hr Q24H IV 02/07/24 16:15 02/08/24 15:38 30.6 MLS/HR Pantoprazole Sodium 40 mg DAILY IV 02/08/24 10:00 02/08/24 09:29 40 MG Albuterol 2.5 mg Q6HR NEB 02/07/24 18:00 02/08/24 13:06 2.5 MG Ipratropium [place] 0.5 mg Q6HR NEB 02/07/24 18:00 02/08/24 13:06 0.5 MG Enoxaparin Sodium 40 mg DAILY SC 02/09/24 10:00 Piperacillin Sod/ Tazobactam Sod 100 ml @ 25 mls/hr Q8H IV 02/08/24 23:00 Examination General Appearance: Sedated. On ventilator. Head Exam: Normal inspection Neck Exam: Normal inspection. Non-tender. Normal alignment Pulmonary/Respiratory: Chest non-tender. Clear bilateral breath sounds Cardiovascular/Chest: Regular rate and rhythm. No murmurs. No JVD. Peripheral Pulses: 2+ Radial (R). 2+ Radial (L). 2+ Pedal (R). 2+ Pedal (L) Abdominal Exam: Normal bowel sounds. Soft. Nontender. No hepatospenomegaly. No masses Ankle Exam: Negative ankle edema Lower extremities: Negative lower extremity edema, right femoral central line. Neuro/Mental Status: Sedated , RASS -3. laboratory and microbiology Laboratory Tests 02/08/24 03:14 Test 02/08/24 03:14 Range/Units Serum Glucose 107 H 74-106 mg/dL Microbiology Date/Time Source Procedure Growth Status 02/07/24 18:01 Nose MRSA Screen - Final Complete 02/07/24 12:45 Sputum Gram Stain - Final Resulted 02/07/24 12:45 Sputum Respiratory Culture - Preliminary Resulted 02/07/24 12:00 Voided Urine Urine Culture - Preliminary Resulted Problem List/Assessment/Plan Problem List/Assessment/Plan Neurology Sedated on ventilator -on ventilator, AC mode, respiratory rate 18, tidal volume 450, FiO2 30%, peep five. Acute metabolic encephalopathy -patient found to have metabolic acidosis, elevated liver enzymes, hypotension. -patient was given IV fluids, IV bicarb. -head CT showed no acute intracranial abnormality. Cardiology NSTEMI type 2 likely due to sepsis -troponin 114, 219 -continue current management of sepsis with antibiotics. Sepsis likely due to ? UTI - IV antibiotics Zosyn -urine culture grows young colonies. -pending respiratory and blood culture. Hypotension , not on vasopressors -IV fluid was given. Respiratory Acute hypoxic respiratory failure in setting of overdose of benzodiazepine -currently on ventilator -UDS came positive for benzodiazepine, opiates and marijuana. Possible overdose of benzodiazepine/clonazepam -continue current management. Nephro MECHE due to VMN -creatinine 1.43, 0.80. -patient was given IV fluids. UTI -continue with IV antibiotics Zosyn. Acute metabolic acidosis: Resolved -pH 7.123, resolved to 7.383. Hypo kalemia -ordered three bags of potassium 20 mEq. Gastroenterology Acute transaminitis -total bilirubin 0.3, AST of 506, ALT 395. -repeat CMP in a.m.. Line: Right femoral central line inserted on 02/07/2024 Intubated on 02/07/2024. PUD prophylaxis: Protonix DVT prophylaxis: Lovenox Goals of care discussed greater than 20 minutes, full code. Critical care time> 81 minutes. Plan of care discussed with Dr Cook Plan discussed with: Other (RN) My Orders My Orders Orders - NICOL GARRETT Procedure Category Date Status Time Enoxaparin Sodium PHA 02/09/24 In Process (Lovenox) 10:00 Piperacillin-Tazob PHA 02/08/24 In Process 3.375gm (Zosyn 3.375g 23:00 Date of Service: Feb 08, 2024 Billing Provider: WILNER BURGER MD Common Visit Codes: 21670-[id number] CARE 30-74 MIN, [id number] CARE-EACH +30MIN NICOL GARRETT Feb 08, 2024 16:21 WILNER BURGER MD Feb 09, 2024 12:26
[2024-02-08 17:52] LABS: Rapid Influenza A Negative (Negative); Rapid Influenza B Negative (Negative)
[2024-02-08 17:52] LABS: COVID19 ANTIGEN SOFIA FIA NEGATIVE (NEGATIVE)
[2024-02-08] MEDS: PIPERACILLIN-TAZOB 3.375GM 100 ML IV SCH (21:44)
[2024-02-09] VITALS (111 sets, daily range): BP systolic 86–153; BP diastolic 34–83; PULSE 53–101; RESP 12–32; TEMP 96.6–99.9; O2SAT 94–100
[2024-02-09 02:28] LABS: Basophils # (auto) 0 10 ^3/uL (0-0.2); Basophils % (auto) 0.3 % (0.0-2.0); Eosinophils # (auto) 0 10 ^3/uL (0-0.8); Eosinophils % (auto) 0.2 % (0.0-7.0); Hemoglobin 9.1 g/dL (12.2-16.2); Lymphocytes # (auto) 0.9 10 ^3/uL (0.4-5.4); Mean Corpuscular Hemoglobin 25.5 pg (28.0-32.0); Mean Corpuscular Hgb Conc. 31.2 g/dL (32.0-36.0); Mean Corpuscular Volume 81.7 fL (80.0-100.0); Monocytes # (auto) 0.3 10 ^3/uL (0-1.3); Monocytes % (auto) 4.8 % (0.0-12.0); Neutrophils % (auto) 79.7 % (37.0-80.0); Platelet Count (auto) 183 10^3/uL (140-450); Red Blood Cells 3.55 10^6/uL (4.0-5.20); Red Cell Distribution Width 18.5 % (11.8-14.3); White Blood Cell 6.3 10^3/uL (4.4-10.8)
[2024-02-09 02:33] LABS: Chloride 115 mmol/L (98-107); Sodium 146 mmol/L (136-145)
[2024-02-09 02:34] LABS: Anion Gap 10 (5-15); Carbon Dioxide 21 mmol/L (20-31)
[2024-02-09 02:35] LABS: Calcium 8.3 mg/dL (8.7-10.4)
[2024-02-09 02:39] LABS: BUN/Creatinine Ratio 17.8 (10.0-20.0); Blood Urea Nitrogen 13 mg/dL (9-23); Glucose 171 mg/dL (74-106)
[2024-02-09 02:40] LABS: Magnesium 1.9 mg/dL (1.6-2.6)
[2024-02-09 03:21] LABS: Potassium 2.5 mmol/L (3.5-5.1)
--- NOTE | 2024-02-09 04:40 | DVH ---
CHEST RADIOGRAPH Indication:on vent Technique: Single frontal view of the chest was obtained Comparison: XY CHEST XRAY 1 VIEW on DOS: 02/08/24 FINDINGS: Lines and Tubes: Endotracheal tube terminates 4.3 cm above the . The enteric tube terminates b elow the left hemidiaphragm and outside the field of view. Lungs: Bilateral opacities which may reflect congestion. Pleura: No effusion. No pneumothorax. Cardiomediastinal contours: Cardiomegaly. Bones: No acute osseous abnormality. ACDF hardware noted. IMPRESSION: 1. Pulmonary congestion.
[2024-02-09] MEDS: MAGNESIUM SULFATE 1GM/100ML 100 ML IV ONE ×2 (04:50)
[2024-02-09] MEDS: POTASSIUM CHL 20MEQ/100ML 100 ML IV ONE ×2 (04:50→04:51)
[2024-02-09] MEDS: POTASSIUM CHL 20MEQ/100ML 100 ML IV SCH ×2 (06:15→22:36)
[2024-02-09 07:41] LABS: Base Excess -3.7 mmol/L (-2.0-3.0)
[2024-02-09 09:45] LABS: Alanine Aminotransferase 277 U/L (7-40); Albumin 3.5 g/dL (3.2-4.8); Alkaline Phosphatase 107 U/L (46-116); Anion Gap 8 (5-15); Aspartate Aminotransferase 156 U/L (13-40); BUN/Creatinine Ratio 17.6 (10.0-20.0); Blood Urea Nitrogen 12 mg/dL (9-23); Calcium 8.7 mg/dL (8.7-10.4); Carbon Dioxide 24 mmol/L (20-31); Chloride 114 mmol/L (98-107); Glucose 147 mg/dL (74-106); Magnesium 2.2 mg/dL (1.6-2.6); Potassium 3.1 mmol/L (3.5-5.1); Sodium 146 mmol/L (136-145)
[2024-02-09 09:46] LABS: Bilirubin, Total 0.4 mg/dL (0.2-1.0); Phosphorus 0.9 mg/dL (2.4-5.1); Total Protein 7.1 g/dL (5.7-8.2)
[2024-02-09] MEDS: ENOXAPARIN SOD 40 MG/0.4 ML SYRINGE SC SCH (10:01)
[2024-02-09] MEDS: POTASSIUM PHOSPHATE 44 MEQ in D5W 5% 250 ML IV ONE (11:05)
[2024-02-09] MEDS ORDERED: ONDANSETRON HCL 4 MG/2 ML VIAL IV PRN (12:00)
[2024-02-09] MEDS: FUROSEMIDE 20 MG/2 ML VIAL IV ONE (13:00)
[2024-02-09] MEDS: ONDANSETRON HCL 4 MG/2 ML VIAL IV ONE (13:01)
--- NOTE | 2024-02-09 13:33 | DVH ---
EXAM: XY KUB ABDOMEN SINGLE VIEW HISTORY: N/V COMPARISON: None TECHNIQUE: Single AP of the abdomen and pelvis was obtained. Findings: Frontal view of the abdomen demonstrates a nonobstructive bowel gas pattern. No visualized renal calc lewis. There is no evidence of an acute fracture, dislocation, blastic, or lytic lesions. The visualized portions of the lung bases are unremarkable. Enteric tube overlying the plane of the stomach. No superficial soft tissue abnormalities. Impression: 1. Nonobstructive bowel gas pattern. 2. No visualized renal calculi.
[2024-02-09] MEDS ORDERED: VANCOMYCIN PER PHARMACY 0 MG IV SCH (13:45)
--- NOTE | 2024-02-09 13:47 | DVHPNRES ---
Progress Note Date Seen: Feb 09, 2024 Resident Creating Document: NICOL GARRETT RESIDENT Medical Necessity Reason Pt with a Central, PICC or Fol: No Subjective Review of Systems HPI: Patient is 53-year-old female with past medical history of hypertension, chronic back pain, insomnia who brought to the hospital via EMS for worsening respiratory distress. EMS was called by son as patient was not responding and EMS was called. At arrival of patient in emergency department patient was intubated for respiratory distress. As per demetrius, patient took sleeping pill clonazepam double dose, however patient did not took more pills for pain [place] 10. Patient also feeling flu-like symptoms one day before and feeling tired but no any other complaints. Patient seen and examined in ICU. Patient is intubated on ventilator. He currently on ventilator setting of respiratory rate 18, 450, FiO2 30%, peep five. Underwent Cpap trial. She became agitated and become tachypneic. Had one episode of vomiting as well. No other complain. Objective vital signs Vital Sign Date Time Temp Pulse Resp B/P (MAP) Pulse Ox O2 Delivery O2 Flow Rate FiO2 02/09/24 13:00 112/57 02/09/24 12:01 99.0 80 27 100 210.2 02/09/24 12:00 Mechanical Ventilator+ 30 30 Total Intake and Output 02/08/24 02/08/24 02/09/24 15:00 23:00 07:00 Intake Total 839.1 ml 392.4 ml 376.46 ml Output Total 1200 ml 1025 ml Balance 839.1 ml -807.6 ml -648.54 ml medications Current Medications Medications Dose Ordered Sig/Shoaib Route Start Time Stop Time Status Last Admin Dose Admin Midazolam HCl 50 ml @ 1 mls/hr Q24H IV 02/07/24 12:45 02/09/24 03:18 7 MLS/HR Norepinephrine Bitartrate 250 ml @ 3.75 mls/hr Q24H IV 02/07/24 15:00 02/07/24 15:00 3.75 MLS/HR Propofol 100 ml @ 3.06 mls/hr Q24H IV 02/07/24 16:15 02/09/24 04:37 18.36 MLS/HR Pantoprazole Sodium 40 mg DAILY IV 02/08/24 10:00 02/09/24 09:59 40 MG Albuterol 2.5 mg Q6HR NEB 02/07/24 18:00 02/09/24 11:39 2.5 MG Ipratropium [place] 0.5 mg Q6HR NEB 02/07/24 18:00 02/09/24 11:39 0.5 MG Enoxaparin Sodium 40 mg DAILY SC 02/09/24 10:00 02/09/24 10:01 40 MG Piperacillin Sod/ Tazobactam Sod 100 ml @ 25 mls/hr Q8H IV 02/08/24 23:00 02/09/24 06:15 25 MLS/HR Dexmedetomidine HCl 400 mcg/ Dextrose 100 ml @ 5.235 mls/ hr Q19H7M IV 02/09/24 08:30 02/09/24 09:07 5.235 MLS/HR Ondansetron HCl 4 mg Q4HPRN PRN IV 02/09/24 12:00 Ondansetron HCl 4 mg Q4HPRN PRN IV 02/09/24 12:15 Vancomycin HCl 0 ml @ 0 mls/hr UD IV 02/09/24 13:45 UNV Examination General Appearance: Sedated. On ventilator. Head Exam: Normal inspection Neck Exam: Normal inspection. Non-tender. Normal alignment Pulmonary/Respiratory: Chest non-tender. Clear bilateral breath sounds Cardiovascular/Chest: Regular rate and rhythm. No murmurs. No JVD. Peripheral Pulses: 2+ Radial (R). 2+ Radial (L). 2+ Pedal (R). 2+ Pedal (L) Abdominal Exam: Normal bowel sounds. Soft. Nontender. No hepatospenomegaly. No masses Ankle Exam: Negative ankle edema Lower extremities: Negative lower extremity edema, right femoral central line. Neuro/Mental Status: Sedated , RASS -3. laboratory and microbiology Laboratory Tests 02/09/24 08:43 02/09/24 02:00 Test 02/09/24 08:43 Range/Units Serum Glucose 147 H 74-106 mg/dL Microbiology Date/Time Source Procedure Growth Status 02/07/24 18:01 Nose MRSA Screen - Final Complete 02/07/24 12:48 Blood Blood Culture - Preliminary NO GROWTH AFTER 24 HOURS OF INCUBATION. Resulted 02/07/24 12:45 Sputum Gram Stain - Final Resulted 02/07/24 12:45 Sputum Respiratory Culture - Preliminary Resulted 02/07/24 12:00 Voided Urine Urine Culture - Preliminary Resulted Problem List/Assessment/Plan Problem List/Assessment/Plan Neurology Sedated on ventilator -on ventilator, AC mode, respiratory rate 18, tidal volume 450, FiO2 30%, peep five.. -Only precedex now. Acute metabolic encephalopathy -patient found to have metabolic acidosis, elevated liver enzymes, hypotension. -patient was given IV fluids, IV bicarb. -head CT showed no acute intracranial abnormality. Cardiology NSTEMI type 2 likely due to sepsis -troponin 114, 219 -continue current management of sepsis with antibiotics. Sepsis likely due to ? UTI - IV antibiotics Zosyn and vanco -urine culture grows coag neg staph nicolas. -pending respiratory and blood culture. Hypotension , not on vasopressors -IV fluid was given. Respiratory Failed CPAP trial today, plan to do again tomorrow. Acute hypoxic respiratory failure in setting of overdose of benzodiazepine -currently on ventilator -UDS came positive for benzodiazepine, opiates and marijuana. Possible overdose of benzodiazepine/clonazepam -continue current management. Nephro MECHE due to VMN: Resolved -creatinine 1.43, 0.80. -patient was given IV fluids. UTI -continue with IV antibiotics Zosyn and vanco Acute metabolic acidosis: Resolved -pH 7.123, resolved to 7.383. Hypokalemia -ordered three bags of potassium 20 mEq. Hypophosphatemia -Replenished Gastroenterology Acute transaminitis: Trending down -Ast 506, 156 -repeat CMP in a.m.. Line: Right femoral central line inserted on 02/07/2024 Intubated on 02/07/2024. PUD prophylaxis: Protonix DVT prophylaxis: Lovenox Goals of care discussed greater than 20 minutes, full code. Critical care time Including CPAP trial > 83 minutes. Plan of care discussed with Dr Cook Plan discussed with: Other (RN) My Orders My Orders Orders - NICOL GARRETT RESIDENT Procedure Category Date Status Time Piperacillin-Tazob PHA 02/08/24 In Process 3.375gm (Zosyn 3.375g 23:00 Chest Xray 1 View XY 02/09/24 Resulted 04:00 Abg W/ Co-Ox RT 02/09/24 Logged 04:00 D5w 5% (Dextrose 5%) PHA 02/09/24 In Process W/Dexmedetomidine 08:30 Potassium Phosphate PHA 02/09/24 In Process 10:15 Ondansetron Hcl PHA 02/09/24 In Process (Zofran) 12:00 Ondansetron Hcl PHA 02/09/24 In Process (Zofran) 12:15 Kub Abdomen Single XY 02/09/24 Resulted View 12:03 Vancomycin Per PHA 02/09/24 Logged Pharmacy 13:45 Date of Service: Feb 09, 2024 Billing Provider: WILNER BURGER MD Common Visit Codes: [id number] CARE 30-74 MIN, 47156-[id number] CARE-EACH +30MIN NICOL GARRETT RESIDENT Feb 09, 2024 13:47 WILNER BURGER MD Feb 10, 2024 11:46
[2024-02-09] MEDS: fentaNYL Drip 2500mCg/250mlNS 250 ML IV SCH (14:13)
[2024-02-09] MEDS: fentaNYL Drip 2500mCg/250mlNS 250 ML IV ONE (15:13)
[2024-02-09] MEDS: VANCOMYCIN 1GM/200ML PREMIX 200 ML IV SCH (15:42)
[2024-02-09 20:32] LABS: Potassium 2.6 mmol/L (3.5-5.1)
[2024-02-09 20:39] LABS: Magnesium 1.7 mg/dL (1.6-2.6)
[2024-02-09 20:41] LABS: Phosphorus 3.9 mg/dL (2.4-5.1)
[2024-02-09] MEDS: MAGNESIUM SULFATE 1GM/100ML 100 ML IV SCH (22:23)
[2024-02-10] VITALS (91 sets, daily range): BP systolic 84–171; BP diastolic 41–108; PULSE 46–120; RESP 12–28; TEMP 97.5–100.4; O2SAT 93–100
[2024-02-10 03:37] LABS: Basophils # (auto) 0.1 10 ^3/uL (0-0.2); Eosinophils # (auto) 0.2 10 ^3/uL (0-0.8); Hemoglobin 8.7 g/dL (12.2-16.2); Mean Corpuscular Hemoglobin 25.6 pg (28.0-32.0); Neutrophils # (auto) 3.9 10 ^3/uL (1.6-8.6)
[2024-02-10 03:40] LABS: Basophils % (auto) 0.8 % (0.0-2.0); Eosinophils % (auto) 3.2 % (0.0-7.0); Hematocrit 27.7 % (36.0-46.0); Lymphocytes % (auto) 29.3 % (10.0-50.0); Mean Corpuscular Hgb Conc. 31.4 g/dL (32.0-36.0); Mean Corpuscular Volume 81.4 fL (80.0-100.0); Monocytes # (auto) 0.6 10 ^3/uL (0-1.3); Monocytes % (auto) 8.7 % (0.0-12.0); Nucleated Red Blood Cells % 0.1 %; Platelet Count (auto) 221 10^3/uL (140-450); Red Cell Distribution Width 18.4 % (11.8-14.3); White Blood Cell 6.8 10^3/uL (4.4-10.8)
[2024-02-10 03:47] LABS: Alanine Aminotransferase 210 U/L (7-40); Albumin 3.5 g/dL (3.2-4.8); Alkaline Phosphatase 94 U/L (46-116); Anion Gap 8 (5-15); Aspartate Aminotransferase 103 U/L (13-40); BUN/Creatinine Ratio 11.3 (10.0-20.0); Bilirubin, Total 0.5 mg/dL (0.2-1.0); Blood Urea Nitrogen 8 mg/dL (9-23); Calcium 8.4 mg/dL (8.7-10.4); Carbon Dioxide 25 mmol/L (20-31); Chloride 113 mmol/L (98-107); Glucose 103 mg/dL (74-106); Potassium 3.5 mmol/L (3.5-5.1); Sodium 146 mmol/L (136-145); Total Protein 6.7 g/dL (5.7-8.2)
[2024-02-10] MEDS: VANCOMYCIN 1.5GM/300ML 300 ML IV SCH (04:07)
--- NOTE | 2024-02-10 04:57 | DVH ---
CHEST RADIOGRAPH Indication:on vent Technique: Single frontal view of the chest was obtained COMPARISON: XY CHEST XRAY 1 VIEW on DOS: 02/09/24, XY CHEST XRAY 1 VIEW on DOS: 02/08/24, XY CHEST PORT ABLE on DOS: 02/07/24 FINDINGS: Lines and Tubes: Endotracheal tube and enteric catheter in satisfactory position. Lungs: Mild congestion Pleura: No effusion. No pneumothorax. Cardiomediastinal contours: Unremarkable Bones: Unremarkable IMPRESSION: Lines and tubes in satisfactory position. No significant interval change.
[2024-02-10] MEDS: methylPREDNISolone SOD SUCC 40 MG/ML VL IV ONE (09:38)
[2024-02-10 11:06] LABS: Base Excess -2.4 mmol/L (-2.0-3.0)
--- NOTE | 2024-02-10 13:12 | DVHPNRES ---
Progress Note Date Seen: Feb 10, 2024 Resident Creating Document: NICOL GARRETT RESIDENT Medical Necessity Reason Pt with a Central, PICC or Fol: No Subjective Review of Systems HPI: Patient is 53-year-old female with past medical history of hypertension, chronic back pain, insomnia who brought to the hospital via EMS for worsening respiratory distress. EMS was called by son as patient was not responding and EMS was called. At arrival of patient in emergency department patient was intubated for respiratory distress. As per demetrius, patient took sleeping pill clonazepam double dose, however patient did not took more pills for pain [place] 10. Patient also feeling flu-like symptoms one day before and feeling tired but no any other complaints. Patient seen and examined in ICU. Underwent CPAP trial. Extubated successfully. Currently on oxygen via mask. Patient is more comfortable. No other complaints. No other night events from developer programmer notified. Objective vital signs Vital Sign Date Time Temp Pulse Resp B/P (MAP) Pulse Ox O2 Delivery O2 Flow Rate FiO2 02/10/24 12:17 98.4 82 15 120/60 (80) 98 209.1 02/10/24 12:00 Cool Aerosol 12 40 40 Total Intake and Output 02/09/24 02/09/24 02/10/24 15:00 23:00 07:00 Intake Total 223.559 ml 912.759 ml 911.973 ml Output Total 3280 ml 645 ml Balance 223.559 ml -2367.241 ml 266.973 ml medications Current Medications Medications Dose Ordered Sig/Shoaib Route Start Time Stop Time Status Last Admin Dose Admin Midazolam HCl 50 ml @ 1 mls/hr Q24H IV 02/07/24 12:45 02/10/24 03:16 5 MLS/HR Norepinephrine Bitartrate 250 ml @ 3.75 mls/hr Q24H IV 02/07/24 15:00 02/09/24 22:58 3.75 MLS/HR Pantoprazole Sodium 40 mg DAILY IV 02/08/24 10:00 02/10/24 09:10 40 MG Albuterol 2.5 mg Q6HR NEB 02/07/24 18:00 02/10/24 11:34 2.5 MG Ipratropium [place] 0.5 mg Q6HR NEB 02/07/24 18:00 02/10/24 11:35 0.5 MG Enoxaparin Sodium 40 mg DAILY SC 02/09/24 10:00 02/10/24 09:10 40 MG Piperacillin Sod/ Tazobactam Sod 100 ml @ 25 mls/hr Q8H IV 02/08/24 23:00 02/10/24 06:29 25 MLS/HR Dexmedetomidine HCl 400 mcg/ Dextrose 100 ml @ 5.235 mls/ hr Q19H7M IV 02/09/24 08:30 02/10/24 06:41 5.235 MLS/HR Ondansetron HCl 4 mg Q4HPRN PRN IV 02/09/24 12:15 Vancomycin HCl 0 ml @ 0 mls/hr UD IV 02/09/24 13:45 Fentanyl Citrate 250 ml @ 2.5 mls/hr Q24H IV 02/09/24 14:15 02/09/24 14:13 2.5 MLS/HR Vancomycin HCl 300 ml @ 200 mls/hr Q12H IV 02/10/24 04:00 02/10/24 04:07 200 MLS/HR Examination General Appearance: Not in acute distress, still sedated given patient stopped of IV propofol and Precedex. Currently on oxygen via face mask. Head Exam: Normal inspection Neck Exam: Normal inspection. Non-tender. Normal alignment Pulmonary/Respiratory: Chest non-tender. Bilateral crackles over both lungs. Cardiovascular/Chest: Regular rate and rhythm. No murmurs. No JVD. Peripheral Pulses: 2+ Radial (R). 2+ Radial (L). 2+ Pedal (R). 2+ Pedal (L) Abdominal Exam: Normal bowel sounds. Soft. Nontender. No hepatospenomegaly. No masses Ankle Exam: Negative ankle edema Lower extremities: Negative lower extremity edema, right femoral central line. Neuro/Mental Status: All cranial nerves intact. laboratory and microbiology Laboratory Tests 02/10/24 03:15 Test 02/10/24 03:15 Range/Units Serum Glucose 103 74-106 mg/dL Microbiology Date/Time Source Procedure Growth Status 02/07/24 18:01 Nose MRSA Screen - Final Complete 02/07/24 12:48 Blood Blood Culture - Preliminary NO GROWTH AFTER 48 HOURS OF INCUBATION. Resulted 02/07/24 12:45 Sputum Gram Stain - Final Resulted 02/07/24 12:45 Sputum Respiratory Culture - Preliminary Resulted 02/07/24 12:00 Voided Urine Urine Culture - Preliminary Resulted Problem List/Assessment/Plan Problem List/Assessment/Plan Neurology Acute metabolic encephalopathy -patient found to have metabolic acidosis, elevated liver enzymes, hypotension. -patient was given IV fluids, IV bicarb. -head CT showed no acute intracranial abnormality. Cardiology NSTEMI type 2 likely due to sepsis -troponin 114, 219 -continue current management of sepsis with antibiotics. Sepsis likely due to ? UTI - IV antibiotics Zosyn and vanco -urine culture grows coag neg staph nicolas. -pending respiratory and blood culture. Hypotension , not on vasopressors -IV fluid was given. Respiratory Extubated on 02/10/2024. Acute hypoxic respiratory failure in setting of overdose of benzodiazepine -UDS came positive for benzodiazepine, opiates and marijuana. -extubated on 02/10/2024 Possible overdose of benzodiazepine/clonazepam -continue current management. Nephro MECHE due to VMN: Resolved -creatinine 1.43, 0.80. -patient was given IV fluids. UTI -continue with IV antibiotics Zosyn and vanco Acute metabolic acidosis: Resolved -pH 7.123, resolved to 7.383. Hypokalemia -ordered three bags of potassium 20 mEq. Hypophosphatemia -Replenished Gastroenterology Acute transaminitis: Trending down -Ast/ALT: 103/210 -repeat CMP in a.m.. Line: Right femoral central line inserted on 02/07/2024 Intubated on 02/07/2024. Extubated on 02/10/2024 PUD prophylaxis: Protonix DVT prophylaxis: Lovenox Goals of care discussed greater than 20 minutes, full code. Critical care time Including CPAP trial and extubation > 81 minutes. Plan of care discussed with Dr Cook Plan discussed with: Patient (RN), Other My Orders My Orders Orders - NICOL GARRETT RESIDENT Procedure Category Date Status Time Vancomycin Per PHA 02/09/24 In Process Pharmacy 13:45 Chest Xray 1 View XY 02/10/24 Resulted 04:00 Fentanyl Drip PHA 02/09/24 In Process 2500mcg/250mlns 14:15 Rass Sedation Scale BOBBY 02/09/24 In Process 14:05 Vancomycin,Trough LAB 02/11/24 Verified 03:00 Complete Blood Count LAB 02/11/24 Verified 03:00 Creatinine LAB 02/11/24 Verified 03:00 Vancomycin 1.5gm/300ml PHA 02/10/24 In Process 04:00 Vancomycin Per BOBBY 02/11/24 In Process Pharmacy Protoc 03:00 Abg W/ Co-Ox RT 02/10/24 Logged 08:53 Extubate BOBBY 02/10/24 In Process 11:01 Dietary Evaluation Review Comments: 1) Advance pt diet to a 2gm Sodium diet when medically feasible modified per [employer] recommendations 2) Continue current plan of care Expected Outcomes/Goals: 1) Pt diet to advance 2) F/U in 2-3 days Date of Service: Feb 10, 2024 Billing Provider: WILNER BURGER MD Common Visit Codes: [id number] CARE 30-74 MIN, [id number] CARE-EACH +30MIN NICOL GARRETT RESIDENT Feb 10, 2024 13:12 WILNER BURGER MD Feb 11, 2024 09:22
[2024-02-10] MEDS: FUROSEMIDE 20 MG/2 ML VIAL IV ONE (13:36)
[2024-02-10] MEDS: POTASSIUM CHL 20MEQ/100ML 100 ML IV ONE (13:37)
[2024-02-10] MEDS ORDERED: ACETAMINOPHEN 650 mg PER 20.3 mL UD GT PRN (23:15)
[2024-02-10] MEDS: ACETAMINOPHEN 650 mg PER 20.3 mL UD PO PRN (23:32)
[2024-02-11] VITALS (53 sets, daily range): BP systolic 96–147; BP diastolic 37–92; PULSE 66–106; RESP 9–20; TEMP 98.2–99.5; O2SAT 90–100
[2024-02-11] MEDS: ONDANSETRON HCL 4 MG/2 ML VIAL IV PRN (03:45)
[2024-02-11 03:55] LABS: Basophils # (auto) 0 10 ^3/uL (0-0.2); Basophils % (auto) 0.4 % (0.0-2.0); Eosinophils # (auto) 0 10 ^3/uL (0-0.8); Hematocrit 32.3 % (36.0-46.0); Hemoglobin 10.2 g/dL (12.2-16.2); Lymphocytes # (auto) 1.5 10 ^3/uL (0.4-5.4); Lymphocytes % (auto) 17.2 % (10.0-50.0); Mean Corpuscular Hemoglobin 25.4 pg (28.0-32.0); Mean Corpuscular Hgb Conc. 31.5 g/dL (32.0-36.0); Mean Corpuscular Volume 80.8 fL (80.0-100.0); Monocytes # (auto) 0.7 10 ^3/uL (0-1.3); Monocytes % (auto) 7.7 % (0.0-12.0); Neutrophils # (auto) 6.6 10 ^3/uL (1.6-8.6); Neutrophils % (auto) 74.7 % (37.0-80.0); Platelet Count (auto) 246 10^3/uL (140-450); Red Cell Distribution Width 18.5 % (11.8-14.3); White Blood Cell 8.8 10^3/uL (4.4-10.8)
[2024-02-11 04:28] LABS: Alanine Aminotransferase 189 U/L (7-40); Alkaline Phosphatase 114 U/L (46-116); Calcium 9.8 mg/dL (8.7-10.4); Carbon Dioxide 23 mmol/L (20-31); Chloride 110 mmol/L (98-107)
[2024-02-11 04:29] LABS: Albumin 4.3 g/dL (3.2-4.8); Anion Gap 10 (5-15); Aspartate Aminotransferase 102 U/L (13-40); BUN/Creatinine Ratio 12.3 (10.0-20.0); Bilirubin, Total 0.8 mg/dL (0.2-1.0); Blood Urea Nitrogen 9 mg/dL (9-23); Glucose 90 mg/dL (74-106); Potassium 3.6 mmol/L (3.5-5.1); Sodium 143 mmol/L (136-145); Total Protein 8.4 g/dL (5.7-8.2)
[2024-02-11] MEDS ORDERED: HYDROcodone-ACET 10/325MG TAB PO SCH (14:00)
[2024-02-11] MEDS: cefTRIAXone 1GM/50ML D5W 50 ML IV ONE (14:03)
[2024-02-11] MEDS ORDERED: VANCOMYCIN 1.5GM/300ML 300 ML IV SCH (16:00)
--- NOTE | 2024-02-11 20:57 | DVHPNRES ---
Progress Note Date Seen: Feb 12, 2024 Resident Creating Document: NICOL GARRETT RESIDENT Medical Necessity Reason Pt with a Central, PICC or Fol: No Subjective Review of Systems HPI: Patient is 53-year-old female with past medical history of hypertension, chronic back pain, insomnia who brought to the hospital via EMS for worsening respiratory distress. EMS was called by son as patient was not responding and EMS was called. At arrival of patient in emergency department patient was intubated for respiratory distress. As per demetrius, patient took sleeping pill clonazepam double dose, however patient did not took more pills for pain [place]. Patient also feeling flu-like symptoms one day before and feeling tired but no any other complaints. Patient seen and examined in ICU. Extubated yesterday Objective vital signs Vital Sign Date Time Temp Pulse Resp B/P (MAP) Pulse Ox O2 Delivery O2 Flow Rate FiO2 02/11/24 19:00 100 16 145/73 (97) 93 02/11/24 18:33 Room Air* 0 21 02/11/24 12:01 99.5 99.5 Total Intake and Output 02/10/24 02/10/24 02/11/24 15:00 23:00 07:00 Intake Total 170.356 ml 100 ml 125 ml Output Total 3500 ml 1400 ml Balance 170.356 ml -3400 ml -1275 ml medications Current Medications Medications Dose Ordered Sig/Shoaib Route Start Time Stop Time Status Last Admin Dose Admin Pantoprazole Sodium 40 mg DAILY IV 02/08/24 10:00 02/11/24 10:02 40 MG Albuterol 2.5 mg Q6HR NEB 02/07/24 18:00 02/11/24 18:33 2.5 MG Ipratropium [place] 0.5 mg Q6HR NEB 02/07/24 18:00 02/11/24 18:33 0.5 MG Enoxaparin Sodium 40 mg DAILY SC 02/09/24 10:00 02/11/24 10:02 40 MG Ondansetron HCl 4 mg Q4HPRN PRN IV 02/09/24 12:15 02/11/24 03:45 4 MG Acetaminophen 650 mg Q8H PRN PO 02/10/24 23:30 02/10/24 23:32 650 MG Ceftriaxone Sodium 50 ml @ 100 mls/hr DAILY@09 IV 02/12/24 09:00 Acetaminophen/ Hydrocodone Bitart 1 tab Q8HP PRN PO 02/11/24 13:45 laboratory and microbiology Laboratory Tests 02/11/24 03:17 Test 02/11/24 03:17 Range/Units Serum Glucose 90 74-106 mg/dL Microbiology Date/Time Source Procedure Growth Status 02/07/24 18:01 Nose MRSA Screen - Final Complete 02/07/24 12:48 Blood Blood Culture - Preliminary NO GROWTH AFTER 72 HOURS OF INCUBATION. Resulted 02/07/24 12:45 Sputum Gram Stain - Final Complete 02/07/24 12:45 Respiratory Culture - Final Staphylococcus aureus Complete 02/07/24 12:00 Voided Urine Urine Culture - Final Staphylococcus epidermidis Complete Problem List/Assessment/Plan Problem List/Assessment/Plan Neurology Acute metabolic encephalopathy -patient found to have metabolic acidosis, elevated liver enzymes, hypotension. -patient was given IV fluids, IV bicarb. -head CT showed no acute intracranial abnormality. Cardiology NSTEMI type 2 likely due to sepsis -troponin 114, 219 -continue current management of sepsis with antibiotics. Sepsis likely due to ? UTI - IV antibiotics Zosyn and vanco -urine culture grows coag neg staph nicolas. -pending respiratory and blood culture. Hypotension , not on vasopressors -IV fluid was given. Respiratory Extubated on 02/10/2024. Acute hypoxic respiratory failure in setting of overdose of benzodiazepine -UDS came positive for benzodiazepine, opiates and marijuana. -extubated on 02/10/2024 Possible overdose of benzodiazepine/clonazepam -continue current management. Nephro MECHE due to VMN: Resolved -creatinine 1.43, 0.80. -patient was given IV fluids. UTI -continue with IV antibiotics Zosyn and vanco Acute metabolic acidosis: Resolved -pH 7.123, resolved to 7.383. Hypokalemia -ordered three bags of potassium 20 mEq. Hypophosphatemia -Replenished Gastroenterology Acute transaminitis: Trending down -Ast/ALT: 103/210 -repeat CMP in a.m.. Line: Right femoral central line inserted on 02/07/2024 Intubated on 02/07/2024. Extubated on 02/10/2024 PUD prophylaxis: Protonix DVT prophylaxis: Lovenox Goals of care discussed greater than 20 minutes, full code. Critical care time Including CPAP trial and extubation > 81 minutes. Plan of care discussed with Dr Cook Plan discussed with: Patient, Spouse My Orders My Orders Orders - NICOL GARRETT RESIDENT Procedure Category Date Status Time Ceftriaxone 1gm/50ml PHA 02/12/24 In Process D5w (Rocephin) 09:00 Respiratory Culture MARGARITO 02/11/24 Logged W/ Gs 12:35 Blood Culture MARGARITO 02/11/24 In Process 12:35 Urine Bacterial MARGARITO 02/11/24 In Process Culture 14:09 Communication Order ORDERS 02/11/24 Transmitted 12:35 Pt Request For Service PT 02/11/24 Logged 12:35 * Swallow Request ST 02/11/24 Transmitted 12:35 Insert Midline ORDERS 02/11/24 Transmitted 14:32 Full Liq Diet DIET 02/11/24 Transmitted Dinner Complete Blood Count LAB 02/12/24 Verified 04:00 Basic Metabolic Panel LAB 02/12/24 Verified 04:00 Chest Xray 1 View XY 02/12/24 Logged 04:00 Dietary Evaluation Review Comments: 1) Advance pt diet to a 2gm Sodium diet when medically feasible modified per [employer] recommendations 2) Continue current plan of care Expected Outcomes/Goals: 1) Pt diet to advance 2) F/U in 2-3 days NICOL GARRETT RESIDENT Feb 11, 2024 20:57
[2024-02-12] VITALS (14 sets, daily range): BP systolic 96–135; BP diastolic 57–75; PULSE 68–88; RESP 16–20; TEMP 98.2–98.6; O2SAT 94–100
[2024-02-12 06:59] LABS: Basophils # (auto) 0 10 ^3/uL (0-0.2); Basophils % (auto) 0.6 % (0.0-2.0); Eosinophils # (auto) 0.1 10 ^3/uL (0-0.8); Eosinophils % (auto) 1.2 % (0.0-7.0); Hematocrit 34.6 % (36.0-46.0); Hemoglobin 10.9 g/dL (12.2-16.2); Lymphocytes # (auto) 1.9 10 ^3/uL (0.4-5.4); Lymphocytes % (auto) 26.8 % (10.0-50.0); Mean Corpuscular Hemoglobin 25.6 pg (28.0-32.0); Mean Corpuscular Hgb Conc. 31.4 g/dL (32.0-36.0); Mean Corpuscular Volume 81.4 fL (80.0-100.0); Monocytes # (auto) 0.5 10 ^3/uL (0-1.3); Monocytes % (auto) 7.6 % (0.0-12.0); Neutrophils # (auto) 4.5 10 ^3/uL (1.6-8.6); Neutrophils % (auto) 63.8 % (37.0-80.0); Nucleated Red Blood Cells % 0.2 %; Platelet Count (auto) 236 10^3/uL (140-450); Red Blood Cells 4.25 10^6/uL (4.0-5.20)
[2024-02-12 07:04] LABS: Calcium 9.6 mg/dL (8.7-10.4); Chloride 106 mmol/L (98-107); Potassium 2.9 mmol/L (3.5-5.1); Sodium 142 mmol/L (136-145)
[2024-02-12 07:05] LABS: Anion Gap 12 (5-15); Carbon Dioxide 24 mmol/L (20-31)
[2024-02-12 07:10] LABS: BUN/Creatinine Ratio 24.6 (10.0-20.0); Blood Urea Nitrogen 15 mg/dL (9-23); Glucose 85 mg/dL (74-106)
--- NOTE | 2024-02-12 08:51 | DVH ---
CHEST RADIOGRAPH Indication:on vent Technique: Single frontal view of the chest was obtained COMPARISON: XY CHEST XRAY 1 VIEW on DOS: 02/10/24, XY CHEST XRAY 1 VIEW on DOS: 02/09/24, XY CHEST XRAY 1 VIEW on DOS: 02/08/24 FINDINGS: Lines and Tubes: None Lungs: Clear Pleura: No effusion. No pneumothorax. Cardiomediastinal contours: Unremarkable Bones: Unremarkable IMPRESSION: No acute disease.
[2024-02-12] MEDS: cefTRIAXone 1GM/50ML D5W 50 ML IV SCH (09:52)
--- NOTE | 2024-02-12 09:59 | MEDREC ---
[facility] Intervention Section I [facility] Intervention: Review courses of therapy (SPUTUM CULTURE RESULTED WITH MSSA. PLEASE CONSIDER SWITCHING CEFTRIAXONE TO CEFAZOLIN 2 G Q8H FOR BETTER TREATMENT) HIRAM SORIANO [facility] Feb 12, 2024 09:59
[2024-02-12] MEDS: HYDROcodone-ACET 10/325MG TAB PO PRN (15:20)
[2024-02-12] MEDS: POTASSIUM CHLORIDE 40 MEQ, LIDOCAINE 1% (LOCAL ANESTH.) 4 ML in SODIUM CHL 0.9% 250 ML IV ONE (15:50)
[2024-02-12] MEDS ORDERED: POTASSIUM CHL 20 Meq TABLET PO SCH (22:00)
--- NOTE | 2024-02-19 16:37 | DVHDSRES ---
Discharge Summary Date of Admission Resident Creating Document: NICOL GARRETT RESIDENT Feb 07, 2024 at 16:13 Date of Discharge: Feb 12, 2024 Admitting Diagnosis Altered mental status Labs/Diagnostic Data: Laboratory Results Test 02/12/24 06:29 02/11/24 03:17 02/10/24 10:50 02/09/24 20:15 White Blood Count 7.0 10^3/uL (4.4-10.8) Red Blood Count 4.25 10^6/uL (4.0-5.20) Hemoglobin 10.9 g/dL (12.2-16.2) Hematocrit 34.6 % (36.0-46.0) Mean Corpuscular Volume 81.4 fL (80.0-100.0) Mean Corpuscular Hemoglobin 25.6 pg (28.0-32.0) Mean Corpuscular Hemoglobin Concent 31.4 g/dL (32.0-36.0) Red Cell Distribution Width 18.0 % (11.8-14.3) Platelet Count 236 10^3/uL (140-450) Mean Platelet Volume 7.7 fL (6.9-10.8) Neutrophils (%) (Auto) 63.8 % (37.0-80.0) Lymphocytes (%) (Auto) 26.8 % (10.0-50.0) Monocytes (%) (Auto) 7.6 % (0.0-12.0) Eosinophils (%) (Auto) 1.2 % (0.0-7.0) Basophils (%) (Auto) 0.6 % (0.0-2.0) Neutrophils # (Auto) 4.5 10 ^3/uL (1.6-8.6) Lymphocytes # (Auto) 1.9 10 ^3/uL (0.4-5.4) Monocytes # (Auto) 0.5 10 ^3/uL (0-1.3) Eosinophils # (Auto) 0.1 10 ^3/uL (0-0.8) Basophils # (Auto) 0 10 ^3/uL (0-0.2) Nucleated Red Blood Cells 0.2 % Sodium Level 142 mmol/L (136-145) Potassium Level 2.9 mmol/L (3.5-5.1) Chloride Level 106 mmol/L (98-107) Carbon Dioxide Level 24 mmol/L (20-31) Anion Gap 12 (5-15) Blood Urea Nitrogen 15 mg/dL (9-23) Creatinine 0.61 mg/dL (0.550-1.02) Glomerular Filtration Rate Calc 106 mL/min (>90) BUN/Creatinine Ratio 24.6 (10.0-20.0) Serum Glucose 85 mg/dL (74-106) Calcium Level 9.6 mg/dL (8.7-10.4) Total Bilirubin 0.8 mg/dL (0.2-1.0) Aspartate Amino Transferase (AST) 102 U/L (13-40) Alanine Aminotransferase (ALT) 189 U/L (7-40) Alkaline Phosphatase 114 U/L (46-116) Total Protein 8.4 g/dL (5.7-8.2) Albumin 4.3 g/dL (3.2-4.8) Vancomycin Level Trough 22.7 ug/mL (5-10) Blood Gas Specimen Type Arterial Blood Gas Sample Site Right radial Blood Gas Patient Temperature 37.0 Arterial Blood Date Drawn Arterial Blood pH 7.361 (7.350-7.450) Arterial Blood Partial Pressure CO2 41.4 mmHg (32.0-45.0) Arterial Blood Partial Pressure O2 72.1 mmHg (83.0-108.0) Arterial Blood HCO3 22.9 mmol/L (21.0-28.0) Arterial Blood Oxygen Saturation 92.2 % (94.0-98.0) Arterial Blood Base Excess -2.4 mmol/L (-2.0-3.0) Arterial Blood Oxyhemoglobin 92.0 % (94.0-98.0) Arterial Blood Carboxyhemoglobin 0.2 % (0.5-1.5) Arterial Blood Methemoglobin 0.0 % (0.0-1.5) Josué Test Modified Blood Gas Total Hemoglobin 10.00 g/dL (12.0-16.0) Blood Gas Modality Vent - cpap FiO2 % 30.0 Blood Gas Pressure Support 8 Blood Gas PEEP or CPAP 5.0 Phosphorus Level 3.9 mg/dL (2.4-5.1) Magnesium Level 1.7 mg/dL (1.6-2.6) Test 02/09/24 07:36 02/09/24 03:58 02/08/24 16:55 02/08/24 16:50 Blood Gas Set Respiration Rate 18.0 Blood Gas Tidal Volume 450.0 POC Glucose 138 mg/dl (70-106) SARS-CoV-2 Antigen (Rapid) Negative (NEGATIVE) Influenza Type A Antigen Negative (Negative) Influenza Type B Antigen Negative (Negative) Test 02/07/24 17:23 02/07/24 13:40 02/07/24 12:48 02/07/24 12:00 Troponin I High Sensitivity 209 ng/L (</=34) Blood Gas Critical Value Read Back Yes Blood Gas Notified Whom Regina cartwright md Blood Gas Notified Time [id number] Blood Gas Notified By Community Assistant [email or web address] Hemoglobin A1c 4.7 % A1C (<5.7) Triglycerides Level 100 mg/dL (< 150) Cholesterol Level 150 mg/dL (< 200) LDL Cholesterol 76 mg/dL (< 100) HDL Cholesterol 49 mg/dL (40-59) Thyroid Stimulating Hormone (TSH) 0.83 uIU/mL (0.55-4.78) Plasma/Serum Blood Alcohol < 3.0 mg/dL (<10) Urine Color Light-orange (Yellow) Urine Clarity Ex.turbid (Clear) Urine pH 5.5 (5.0-9.0) Urine Specific [place] 1.027 (1.001-1.035) Urine Protein 3+ (Negative) Urine Ketones Negative (Negative) Urine Blood 3+ /uL (Negative) Urine Nitrite Negative (Negative) Urine Bilirubin Negative (Negative) Urine Urobilinogen Normal mg/dL (Negative) Urine Leukocyte Esterase Negative /uL (Negative) Urine RBC 7 /hpf (0 - 4) Urine WBC 31 /hpf (0 - 5) Urine Squamous Epithelial Cells None seen /hpf (<5) Urine Bacteria Few /hpf (None Seen) Urine Hyaline Casts Few /lpf (0 - 2) Urine Mucus Few (None Seen) Urine Glucose Normal mg/dL (Normal) Urine Opiates Screen Pos (NEGATIVE) Urine Fentanyl Screen Neg (NEGATIVE) Urine Barbiturates Screen Neg (NEGATIVE) Urine Phencyclidine Screen Neg (NEGATIVE) Urine Amphetamines Screen Neg (NEGATIVE) Urine Benzodiazepines Screen Pos (NEGATIVE) Urine Cocaine Screen Neg (NEGATIVE) Urine Cannabinoids Screen Pos (NEGATIVE) Other Laboratory Tests 02/12/24 06:29 Brief Hx & Hospital Course: Patient is 53-year-old female with past medical history of hypertension, chronic back pain, insomnia who brought to the hospital via EMS for worsening respiratory distress. EMS was called by son as patient was not responding and EMS was called. At arrival of patient in emergency department patient was intubated for respiratory distress. As per demetrius, patient took sleeping pill clonazepam double dose, however patient did not took more pills for pain [place] 10.Patient was intubated on 02/07/2024. Patient was started on IV antibiotics Zosyn and vanco for possible UTI . Patient was given IV fluid and bicarb for metabolic acidosis, elevated liver enzymes and hypotension. Over the course of hospitalization patient's kidney function improved, given patient was on minimal ventilator setting, improved metabolic acidosis, patient was extubated on 02/10/2024. Downgraded to tele. Continue getting treatment including antibiotic. On 02/12/2024, patient was advised to stay in the hospital for hypokalemia and needs few more days antibiotic, patient had family spouse decided to go against medical advice and they will follow with the primary care physician. Condition at Discharge: Undetermined Final Diagnosis/Problems List Acute metabolic encephalopathy NSTEMI type 2 likely due to sepsis Sepsis likely due to ? UTI Hypotension , not on vasopressors Acute hypoxic respiratory failure in setting of overdose of benzodiazepine Possible overdose of benzodiazepine/clonazepam MECHE due to VMN: Resolved UTI Acute metabolic acidosis: Resolved Hypokalemia Hypophosphatemia Acute transaminitis: Discharge Disposition: AMA Discharge Statement: "Patient was advised to return to the ER or call 911 if any headaches, dizziness, shortness of breath, chest pain, abdominal pain, bleeding, fevers, or worsening of medical condition. Patient was counseled about treatment plan, medications, possible side effects, patientverbalized understanding. All questions were answered to the best of my ability. This discharge took greater then 30 minutes in planning, reviewing documentation, counseling the patient, and discussing with other team members." ASSESSMENT ASSESSMENT Assessment NICOL GARRETT RESIDENT Feb 19, 2024 16:37
== END 2024-02-12 20:30 | disposition left against medical advice (07) | DRG 812 ==
LOC: EDBD 12:22 → ER 12:22 → TELE 16:13 → ICU WEST 17:15 → TELE-WESTW 02-11 21:07
PROVIDERS: ADMIT Internal Medicine Pulmonary Disease; ATTEND Internal Medicine Pulmonary Disease
PROC: 0BH17EZ Insertion of Endotracheal Airway into Trachea, Via Natural or Artificial Opening (ICD-10-PCS; principal; 2024-02-07)
PROC: 5A1945Z Respiratory Ventilation, 24-96 Consecutive Hours (ICD-10-PCS; 2024-02-07)
PROC: 06HY33Z Insertion of Infusion Device into Lower Vein, Percutaneous Approach (ICD-10-PCS; 2024-02-07)
PROC: 05HF33Z Insertion of Infusion Device into Left Cephalic Vein, Percutaneous Approach (ICD-10-PCS; 2024-02-11)
PROC: B54NZZA Ultrasonography of Left Upper Extremity Veins, Guidance (ICD-10-PCS; 2024-02-11)
DX: T42.4X1A Poisoning by benzodiazepines, accidental (unintentional), initial encounter (principal); J96.01 Acute respiratory failure with hypoxia; N17.0 Acute kidney failure with tubular necrosis; A41.9 Sepsis, unspecified organism; G93.41 Metabolic encephalopathy; I21.A1 Myocardial infarction type 2; E87.20 Acidosis, unspecified; Z53.29 Procedure and treatment not carried out because of patient's decision for other reasons; N39.0 Urinary tract infection, site not specified; I10 Essential (primary) hypertension; E87.6 Hypokalemia; G89.29 Other chronic pain; E66.9 Obesity, unspecified; E83.39 Other disorders of phosphorus metabolism; Z87.442 Personal history of urinary calculi; Z68.32 Body mass index [BMI] 32.0-32.9, adult; Z79.899 Other long term (current) drug therapy; Y92.89 Other specified places as the place of occurrence of the external cause
CPT/HCPCS: 31500; 36415; 36556; 36600; 70450; 71045; 74018; 80048; 80053; 80061; 80202; 80307; 80320; 81001; 82565; 82805; 82962; 83036; 83735; 84100; 84132; 84443; 84484; 85025; 87040; 87070; 87077; 87081; 87086; 87088; 87186; 87205; 87426; 87804; 92610; 94002; 94003; 94640; 96365; 96375; 97163; G0378; J2003; J2405; J2470; J2543; J2704; J3480; J7060